=== PATIENT | female | born 1975 | race Hispanic/Latino ===

== ENCOUNTER 2020-09-22 13:40 | Emergency (ER) | payer BC ==
--- NOTE | 2020-09-22 15:00 | RAD REPORT ---
EXAM DESCRIPTION: RAD - Chest Pa And Lat (2 Views) - 09/22/2020 2:37 pm CLINICAL HISTORY: Congestion;Cough COMPARISON: Portable September 2015 TECHNIQUE: Frontal and lateral views of the chest were obtained. FINDINGS: The lungs are underinflated compared to the prior study. Interstitial and alveolar opaciti es are present in both lung bases. Pneumonia is favored over shallow inspiration atelectasis. Heart size is normal and central vasculature is within normal limits. No pleural effusion or pneumothorax seen. No acute bony finding noted. No aortic abnormality. IMPRESSION: Bilateral lung base pneumonia.
--- NOTE | 2020-09-22 15:52 | EDPHYS ---
Physician Documentation [facility] Name: Ying Terry Age: 44 yrs Sex: Female : 1975 Arrival Date: 09/22/2020 Time: 13:44 Bed 26 Private MD: ED Physician Carter Reagan HPI: 09/22 16:49 This 44 yrs old Female presents to ER via Ambulatory with complaints of Cough, kb Body Aches. 16:49 The patient or guardian reports cough, that is constant, described as mild, described kb as moderate. Onset: The symptoms/episode began/occurred last week. Severity of symptoms: At their worst the symptoms were moderate, in the emergency department the symptoms are unchanged. Modifying factors: The symptoms are alleviated by nothing, the symptoms are aggravated by nothing. Associated signs and symptoms: The patient has no apparent associated signs or symptoms. The patient has not experienced similar symptoms in the past. The patient has been recently seen by a physician:. PT reports she tested positive for covid last week. Came today because she cannot get rid of the cough. Historical: - Allergies: 13:50 No Known Drug Allergies; tw2 - Home Meds: 13:50 "throid medicine" [Active]; tw2 - PMHx: 13:50 Hypothyroidism; tw2 - PSHx: 13:50 ; Appendectomy; tw2 - Immunization history:: Adult Immunizations. - Social history:: Smoking status: . ROS: 16:48 Cardiovascular: Negative for chest pain, palpitations, and edema, Abdomen/GI: Negative kb for abdominal pain, nausea, vomiting, diarrhea, and constipation, Back: Negative for injury and pain, MS/Extremity: Negative for injury and deformity, Skin: Negative for injury, rash, and discoloration, Neuro: Negative for headache, weakness, numbness, tingling, and seizure. 16:48 Constitutional: Positive for malaise. 16:48 Respiratory: Positive for cough, Negative for dyspnea on exertion, hemoptysis, orthopnea, pleurisy, shortness of breath, sputum production, wheezing. Exam: 16:48 Constitutional: This is a well developed, well nourished patient who is awake, alert, kb and in no acute distress. Head/Face: Normocephalic, atraumatic. Chest/axilla: Normal chest wall appearance and motion. Nontender with no deformity. No lesions are appreciated. Cardiovascular: Regular rate and rhythm with a normal S1 and S2. No gallops, murmurs, or rubs. Normal PMI, no JVD. No pulse deficits. Respiratory: Lungs have equal breath sounds bilaterally, clear to auscultation and percussion. No rales, rhonchi or wheezes noted. No increased work of breathing, no retractions or nasal flaring. Abdomen/GI: Soft, non-tender, with normal bowel sounds. No distension or tympany. No guarding or rebound. No evidence of tenderness throughout. Skin: Warm, dry with normal turgor. Normal color with no rashes, no lesions, and no evidence of cellulitis. MS/ Extremity: Pulses equal, no cyanosis. Neurovascular intact. Full, normal range of motion. Neuro: Awake and alert, GCS 15, oriented to person, place, time, and situation. Cranial nerves II-XII grossly intact. Motor strength 5/5 in all extremities. Sensory grossly intact. Cerebellar exam normal. Normal gait. Vital Signs: 13:46 BP 112 / 88; Pulse 108; Resp 19; Temp 99.9(TE); Pulse Ox 96% on R/A; Weight 63.05 kg; tw2 Height 5 ft. 1 in. (154.94 cm); Pain 0/10; 13:46 Body Mass Index 26.26 (63.05 kg, 154.94 cm) tw2 MDM: 15:34 Patient medically screened. kb 16:49 Data reviewed: vital signs, nurses notes. Data interpreted: Pulse oximetry: on room air kb is 96 %. Interpretation: normal. Counseling: I had a detailed discussion with the patient and/or guardian regarding: the historical points, exam findings, and any diagnostic results supporting the discharge/admit diagnosis, radiology results, the need for outpatient follow up, a family practitioner, to return to the emergency department if symptoms worsen or persist or if there are any questions or concerns that arise at home. 09/22 14:18 Order name: Chest Pa And Lat (2 Views) XRAY; Complete Time: 15:11 kb Administered Medications: 16:05 Drug: predniSONE 40 mg Route: PO; tw2 16:06 Drug: Tussionex Pennkinetic ER 5 ml Route: PO; tw2 16:06 Drug: Zithromax 500 mg Route: PO; tw2 Disposition: 19:01 Co-signature as Attending Physician, Carter Reagan MD. rn Disposition: 09/22/20 15:51 Discharged to Home. Impression: Pneumonia, unspecified organism, Coronavirus infection, unspecified. - Condition is Stable. - Discharge Instructions: Community-Acquired Pneumonia, Adult, [id number], COVID-19. - Prescriptions for Prednisone 20 mg Oral Tablet - take 1 tablet by ORAL route once daily for 5 days; 5 tablet. Tessalon Perles 100 mg Oral Capsule - take 1 capsule by ORAL route every 8 hours As needed; 15 capsule. Albuterol Sulfate 90 mcg/actuation - inhale 1-2 puff by INHALATION route every 4-6 hours; 1 Inhaler. Zithromax 500 mg Oral Tablet - take 1 tablet by ORAL route once daily for 5 days; 5 tablet. - Medication Reconciliation Form, Thank You Letter, Antibiotic Education, Prescription Opioid Use form. - Follow up: Emergency Department; When: As needed; Reason: Worsening of condition. Follow up: Private Physician; When: 2 - 3 days; Reason: Recheck today's complaints, Continuance of care, Re-evaluation by your physician. Signatures: Dispatcher [employer] EDMS Migdalia Liang, PHARMACEUTICAL OPERATOR-C PHARMACEUTICAL OPERATOR-Carter Huang MD MD rn Baxter, Heather, RN RN hb Wise, Tara, RN RN tw2 Corrections: (The following items were deleted from the chart) 16:13 15:51 09/22/2020 15:51 Discharged to Home. Impression: Pneumonia, unspecified organism; hb Coronavirus infection, unspecified. Condition is Stable. Forms are Medication Reconciliation Form, Thank You Letter, Antibiotic Education, Prescription Opioid Use. Follow up: Emergency Department; When: As needed; Reason: Worsening of condition. Follow up: Private Physician; When: 2 - 3 days; Reason: Recheck today's complaints, Continuance of care, Re-evaluation by your physician. kb
--- NOTE | 2020-09-22 15:52 | ER ---
Nurse's Notes [facility] Name: Ying Terry Age: 44 yrs Sex: Female : 1975 Arrival Date: 09/22/2020 Time: 13:44 Bed 26 Private MD: Diagnosis: Pneumonia, unspecified organism;Coronavirus infection, unspecified Presentation: 09/22 13:46 Chief complaint: Patient states: i am covid positive, i was tested last Tuesday, i cant tw2 get rid of the cough and the doctor said i need to have a chest xray done to r/out pneumonia , cough congestion, body aches, fatigued. Coronavirus screen: chills, cough unrelated to allergies, fatigue, fever, headache, muscle pain, runny nose, loss of taste or smell, Client presents with at least one sign or symptom that may indicate coronavirus-19. Standard/surgical mask placed on the client. Provider contacted for isolation considerations. Client reports previous positive COVID test result. Date of collection: September 15, 2020. Ebola Screen: Patient denies travel to an Ebola-affected area in the 21 days before illness onset. Initial Sepsis Screen: Does the patient meet any 2 criteria? HR > 90 bpm. No. Patient's initial sepsis screen is negative. Does the patient have a suspected source of infection? Yes: Productive cough/pneumonia. Risk Assessment: Do you want to hurt yourself or someone else? Patient reports no desire to harm self or others. Onset of symptoms was September 22, 2020. 13:46 Method Of Arrival: Ambulatory tw2 13:46 Acuity: WAQAR 3 tw2 Triage Assessment: 13:50 General: Appears in no apparent distress. uncomfortable, Behavior is calm, cooperative, tw2 appropriate for age. Pain: Complains of pain in nose and mouth. EENT: Reports nasal congestion nasal discharge. Respiratory: Reports cough that is. Historical: - Allergies: 13:50 No Known Drug Allergies; tw2 - Home Meds: 13:50 "throid medicine" [Active]; tw2 - PMHx: 13:50 Hypothyroidism; tw2 - PSHx: 13:50 ; Appendectomy; tw2 - Immunization history:: Adult Immunizations. - Social history:: Smoking status: . Screenin:46 Abuse screen: Denies threats or abuse. Denies injuries from another. Nutritional hb screening: No deficits noted. Tuberculosis screening: No symptoms or risk factors identified. Fall Risk None identified. Assessment: 15:44 General: Appears in no apparent distress. Behavior is calm, cooperative. Pain: Pain hb currently is 3 out of 10 on a pain scale. Neuro: Level of Consciousness is awake, alert, obeys commands, Oriented to person, place, time, situation. Cardiovascular: Capillary refill < 3 seconds Patient's skin is warm and dry. Respiratory: Reports cough that is non-productive, Airway is patent Respiratory effort is even, unlabored, Respiratory pattern is regular, symmetrical. GI: No signs and/or symptoms were reported involving the gastrointestinal system. : No signs and/or symptoms were reported regarding the genitourinary system. EENT: No signs and/or symptoms were reported regarding the EENT system. Derm: Skin is pink, warm \\T\\ dry. Musculoskeletal: Reports body aches. Vital Signs: 13:46 BP 112 / 88; Pulse 108; Resp 19; Temp 99.9(TE); Pulse Ox 96% on R/A; Weight 63.05 kg; tw2 Height 5 ft. 1 in. (154.94 cm); Pain 0/10; 13:46 Body Mass Index 26.26 (63.05 kg, 154.94 cm) tw2 ED Course: 13:44 Patient arrived in ED. ds1 13:49 Triage completed. tw2 13:50 Arm band placed on. tw2 14:18 Migdalia Liang FNP-C is [facility]. kb 14:18 Carter Reagan MD is Attending Physician. kb 14:34 Chest Pa And Lat (2 Views) XRAY In Process Unspecified. EDMS 15:44 Tigist Manzanares, ADEN is Primary Nurse. hb 15:46 Patient has correct armband on for positive identification. Bed in low position. Call hb light in reach. Side rails up X 1. Administered Medications: 16:05 Drug: predniSONE 40 mg Route: PO; tw2 16:06 Drug: Tussionex Pennkinetic ER 5 ml Route: PO; tw2 16:06 Drug: Zithromax 500 mg Route: PO; tw2 Outcome: 15:51 Discharge ordered by . kb 16:13 Patient left the ED. hb Signatures: Dispatcher [employer] EDMS Garth, Migdalia, URBAN PLANNER-C URBAN PLANNER-Ckb Renetta Carlos ds1 Tigist Manzanares, RN RN hb Ramila Jones RN RN tw2
[2020-09-22 16:18] VITALS: BP 112/88; TEMP 99.9; O2SAT 96
[2020-09-22] MEDS ORDERED: AZITHROMYCIN 250 MG TAB ONE (16:18)
[2020-09-22] MEDS ORDERED: predniSONE 20 MG TAB ONE (16:19)
[2020-09-22] MEDS ORDERED: HYDROCODONE/CHLORPHEN 5 ML/OSYR ONE (16:19)
== END 2020-09-22 16:13 | disposition home or self-care (01) ==
LOC: ER 13:40
DX: U07.1 COVID-19 (principal); J12.82 Pneumonia due to coronavirus disease 2019; E03.9 Hypothyroidism, unspecified
CPT/HCPCS: 71046; 99283; J7512

== ENCOUNTER 2020-09-25 16:51 | Emergency (ER) | payer BC ==
[2020-09-25] MEDS ORDERED: MAGNESIUM SULFATE 1 gm IVPB 1 GM/100 ML BAG IV ONE (21:34)
[2020-09-25] MEDS ORDERED: LEVALBUTEROL 1.25 MG/3 ML NEB ONE (21:34)
[2020-09-25 21:37] LABS: Absolute Lymphocytes (CBC) 1.3 K/uL (0.7-4.9); Basophils % 0.4 % (0-1.3); Hematocrit 35.1 % (36.0-45.0); Lymphocytes % 13.6 % (15.3-44.8); RBC Red Blood Cell Count 4.17 M/uL (3.86-4.86)
[2020-09-25 21:59] LABS: ALT/SGPT 201 U/L (12-78); AST/SGOT 86 U/L (15-37); Albumin 2.8 g/dL (3.4-5.0); Alkaline Phosphatase 267 U/L (45-117); BUN Blood Urea Nitrogen 11 mg/dL (7-18); Bicarbonate 25 mmol/L (21-32); Bilirubin Total 0.3 mg/dL (0.2-1.0); Glucose Level 135 mg/dL (74-106); Protein, Total 7.4 g/dL (6.4-8.2); Sodium Level 139 mmol/L (136-145)
[2020-09-25] MEDS ORDERED: ONDANSETRON 4 MG/2 ML VIAL ONE (22:40)
[2020-09-25] MEDS ORDERED: dexAMETHasone 10 MG/ML VIAL ONE (22:40)
[2020-09-25] MEDS ORDERED: MORPHINE 4 MG/ML SYR ONE (22:40)
[2020-09-25] MEDS ORDERED: HYDROCODONE/CHLORPHEN 5 ML/OSYR ONE (22:40)
--- NOTE | 2020-09-25 22:55 | ER ---
Nurse's Notes [facility] Name: Ying Terry Age: 44 yrs Sex: Female : 1975 Arrival Date: 09/25/2020 Time: 16:53 Bed 7 Private MD: Diagnosis: Coronavirus infection, unspecified Presentation: 09/25 17:20 Chief complaint: Patient states: Covid+ 09/15/2020. S/S started 09/12/2020. Here today ca1 for persistent cough, chest congestion and pain with coughing, unable to sleep, sore throat. Was tested here and was told I have bacterial pneumonia, still have 1 dose last for of the abx for tomorrow. Coronavirus screen: Client denies travel out of the [place] in the last 14 days. Client reports previous positive COVID test result. Date of collection: September 15, 2020 Staff notified of need for isolation. Ebola Screen: Patient negative for fever greater than or equal to 101.5 degrees Fahrenheit, and additional compatible Ebola Virus Disease symptoms Patient denies exposure to infectious person. Patient denies travel to an Ebola-affected area in the 21 days before illness onset. No symptoms or risks identified at this time. Initial Sepsis Screen: Does the patient meet any 2 criteria? No. Patient's initial sepsis screen is negative. Does the patient have a suspected source of infection? No. Patient's initial sepsis screen is negative. Risk Assessment: Do you want to hurt yourself or someone else? Patient reports no desire to harm self or others. Onset of symptoms was September 25, 2020. 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 - Social history:: Smoking status: Patient denies any tobacco usage or history of. Screenin:02 Abuse screen: Denies threats or abuse. Nutritional screening: No deficits noted. ea Tuberculosis screening: No symptoms or risk factors identified. Fall Risk None identified. Assessment: 21:30 General: Appears in no apparent distress. uncomfortable, Behavior is calm, cooperative, rr5 appropriate for age. Pain: Complains of pain in chest Pain does not radiate. Pain currently is 7 out of 10 on a pain scale. Quality of pain is described as aching, Pain began gradually. Neuro: Level of Consciousness is awake, alert, obeys commands, Oriented to person, place, time, situation. Cardiovascular: Reports chest pain, Capillary refill < 3 seconds Patient's skin is warm and dry. Respiratory: Reports shortness of breath cough that is pain with cough Airway is patent Respiratory effort is even, unlabored, Respiratory pattern is regular, symmetrical. GI: No signs and/or symptoms were reported involving the gastrointestinal system. : No signs and/or symptoms were reported regarding the genitourinary system. EENT: No signs and/or symptoms were reported regarding the EENT system. Derm: Skin is intact, is healthy with good turgor, Skin temperature is warm. Musculoskeletal: Circulation, motion, and sensation intact. Capillary refill < 3 seconds. 22:15 Reassessment: Patient appears in no apparent distress at this time. Patient is alert, rr5 oriented x 3, equal unlabored respirations, skin warm/dry/pink. able to walk down the hallway without shortness of breath. O2 saturation maintain on 95% and above. 22:32 Reassessment: Patient appears in no apparent distress at this time. Patient is alert, rr5 oriented x 3, equal unlabored respirations, skin warm/dry/pink. complaining of persistent cough, ED provider aware with order made and carried out. 23:21 Reassessment: Patient appears in no apparent distress at this time. Patient is alert, rr5 oriented x 3, equal unlabored respirations, skin warm/dry/pink. discharge instruction given and explained without complaints made Patient states feeling better. Patient states symptoms have improved. Vital Signs: 17:20 BP 105 / 65; Pulse 98; Resp 20 S; Temp 98.3(TE); Pulse Ox 97% on R/A; Weight 60.78 kg ca1 (R); Height 5 ft. 1 in. (154.94 cm) (R); Pain 7/10; 21:09 BP 125 / 81; Pulse 110; Resp 22; Pulse Ox 95% ; rr5 22:30 BP 108 / 76; Pulse 115; Resp 24; Pulse Ox 96% ; rr5 23:22 BP 123 / 80; Pulse 104; Resp 19; Pulse Ox 96% ; rr5 17:20 Body Mass Index 25.32 (60.78 kg, 154.94 cm) ca1 ED Course: 16:53 Patient arrived in ED. as 17:24 Triage completed. ca1 17:25 Arm band placed on right wrist. ca1 20:00 Dilip Sofia PA is PHCP. [facility] 20:00 Carter Reagan MD is Attending Physician. jmm 20:25 Inserted saline lock: 20 gauge in left antecubital area, using aseptic technique. rr5 ,using aseptic technique. inserted by fatou SAMANIEGO Blood collected. 20:25 First set of blood cultures drawn by ED staff. rr5 21:02 Fatou Bajwa, ADEN is Primary Nurse. ea 21:02 Patient has correct armband on for positive identification. Bed in low position. Call ea light in reach. Pulse ox on. NIBP on. 23:22 No provider procedures requiring assistance completed. IV discontinued, intact, rr5 bleeding controlled, No redness/swelling at site. Pressure dressing applied. Patient maintains SpO2 saturation greater than 95% on room air. Administered Medications: 21:31 Drug: Magnesium Sulfate 1 grams Route: IVPB; Infused Over: 1 hrs; Site: left rr5 antecubital; 23:24 Follow up: Response: No adverse reaction; IV Status: Completed infusion; IV Intake: rr5 100ml 21:31 Drug: Xopenex (3) 1.25 mg Route: Inhalation; rr5 22:30 Follow up: Response: No adverse reaction rr5 22:30 Drug: Tussionex Pennkinetic ER 5 ml Route: PO; rr5 23:23 Follow up: Response: No adverse reaction; Marked relief of symptoms rr5 22:31 Drug: Decadron - Dexamethasone 10 mg Route: IVP; Site: right wrist; rr5 23:23 Follow up: Response: No adverse reaction rr5 22:31 CANCELLED (Patient Refused): morphine 4 mg IVP once; RASS on ADMIN: Combtv4, Very rr5 Agttd3, Agttd2, Rstlss1, AlertClm0, Drwsy-1, Lt Sdtn-2, Mod Sdtn-3, Dp Sdtn-4, UnArsble-5 22:31 CANCELLED (Patient Refused): Zofran (Ondansetron) 4 mg IVP once; over 2 minutes rr5 Intake: 23:24 IV: 100ml; Total: 100ml. rr5 Outcome: 22:54 Discharge ordered by MD. costa 23:23 Discharged to home ambulatory. rr5 23:23 Condition: stable 23:23 Discharge instructions given to patient, Instructed on discharge instructions, follow up and referral plans. medication usage, Demonstrated understanding of instructions, follow-up care, medications, Prescriptions given X 2. 23:24 Patient left the ED. rr5 Signatures: Dilip Sofia PA PA jmm Martinez, Amelia as Antunez, Elena RN RN Kevin Reeves RN RN rr5 Tere Calvin RN RN ca1
--- NOTE | 2020-09-25 22:55 | EDPHYS ---
Physician Documentation [facility] Name: Ying Terry Age: 44 yrs Sex: Female : 1975 Arrival Date: 09/25/2020 Time: 16:53 Bed 7 Private MD: ED Physician Carter Reagan HPI: 09/25 21:10 This 44 yrs old Female presents to ER via Ambulatory with complaints of Cough jmm - covid+, Chest Pain. 21:10 The patient or guardian reports cough. Onset: The symptoms/episode began/occurred jmm gradually, 13 day(s) ago. Modifying factors: The symptoms are alleviated by nothing, the symptoms are aggravated by cough. This is a 44 year old female with a history of hypothyroidism that presents to the ED with complaints of cough, shortness of breath. Symptoms began approx 13 days ago. Patient diagnosed with pneumonia 3 days ago. Currently taking steroids and abx. . 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 - Social history:: Smoking status: Patient denies any tobacco usage or history of. ROS: 21:10 Constitutional: Positive for fever. jmm 21:10 Cardiovascular: Positive for chest pain, with cough. 21:10 Respiratory: Positive for cough, shortness of breath. 21:10 All other systems are negative. Exam: 21:10 Constitutional: This is a well developed, well nourished patient who is awake, alert, jmm and in no acute distress. Head/Face: atraumatic. Eyes: EOMI, no conjunctival erythema appreciated ENT: Moist Mucus Membranes Neck: Trachea midline, Supple Chest/axilla: Normal chest wall appearance and motion. Cardiovascular: Regular rate and rhythm. No edema appreciated Respiratory: Normal respirations, no respiratory distress appreciated Abdomen/GI: Non distended, soft Back: Normal ROM Skin: General appearance color normal MS/ Extremity: Moves all extremities, no obvious deformities appreciated, no edema noted to the lower extremities Neuro: Awake and alert, normal gait Psych: Behavior is normal, Mood is normal, Patient is cooperative and pleasant Vital Signs: 17:20 BP 105 / 65; Pulse 98; Resp 20 S; Temp 98.3(TE); Pulse Ox 97% on R/A; Weight 60.78 kg ca1 (R); Height 5 ft. 1 in. (154.94 cm) (R); Pain 7/10; 21:09 BP 125 / 81; Pulse 110; Resp 22; Pulse Ox 95% ; rr5 22:30 BP 108 / 76; Pulse 115; Resp 24; Pulse Ox 96% ; rr5 23:22 BP 123 / 80; Pulse 104; Resp 19; Pulse Ox 96% ; rr5 17:20 Body Mass Index 25.32 (60.78 kg, 154.94 cm) ca1 MDM: 21:10 Patient medically screened. [facility] 22:52 Data reviewed: vital signs, nurses notes. Counseling: I had a detailed discussion with julissa the patient and/or guardian regarding: the historical points, exam findings, and any diagnostic results supporting the discharge/admit diagnosis, lab results, the need for outpatient follow up, to return to the emergency department if symptoms worsen or persist or if there are any questions or concerns that arise at home. ED course: Pulse ox is wnl. I do not suspect sepsis. Patient does feel better in the ED. Will add ivermectin and cough suppressant. Patient is otherwise given strict return precautions. Patient understood and agrees with the plan of care. . 09/25 21:13 Order name: CBC with Diff; Complete Time: 21:46 [facility] 09/25 21:13 Order name: CMP; Complete Time: 22:04 [facility] 09/25 21:13 Order name: Blood Culture Adult (2) [facility] 09/25 21:14 Order name: CRP; Complete Time: 22:04 [facility] 09/25 21:16 Order name: D-Dimer; Complete Time: 21:46 [facility] 09/25 17:26 Order name: EKG; Complete Time: 17:27 [facility] 09/25 17:26 Order name: EKG - Nurse/Tech; Complete Time: 17:31 [facility] 09/25 21:13 Order name: Saline Lock; Complete Time: 21:31 [facility] Administered Medications: 21:31 Drug: Magnesium Sulfate 1 grams Route: IVPB; Infused Over: 1 hrs; Site: left rr5 antecubital; 23:24 Follow up: Response: No adverse reaction; IV Status: Completed infusion; IV Intake: rr5 100ml 21:31 Drug: Xopenex (3) 1.25 mg Route: Inhalation; rr5 22:30 Follow up: Response: No adverse reaction rr5 22:30 Drug: Tussionex Pennkinetic ER 5 ml Route: PO; rr5 23:23 Follow up: Response: No adverse reaction; Marked relief of symptoms rr5 22:31 Drug: Decadron - Dexamethasone 10 mg Route: IVP; Site: right wrist; rr5 23:23 Follow up: Response: No adverse reaction rr5 22:31 CANCELLED (Patient Refused): morphine 4 mg IVP once; RASS on ADMIN: Combtv4, Very rr5 Agttd3, Agttd2, Rstlss1, AlertClm0, Drwsy-1, Lt Sdtn-2, Mod Sdtn-3, Dp Sdtn-4, UnArsble-5 22:31 CANCELLED (Patient Refused): Zofran (Ondansetron) 4 mg IVP once; over 2 minutes rr5 Disposition: 09/26 01:51 Co-signature as Attending Physician, Carter Reagan MD. rn Disposition: 09/25/20 22:54 Discharged to Home. Impression: Coronavirus infection, unspecified. - Condition is Stable. - Discharge Instructions: COVID-19. - Prescriptions for ivermectin 3 mg Oral tablet - take 6 tablet by ORAL route as directed Dose on day one and dose on day 3; 12 tablet. promethazine- DM - take 5 milliliter by ORAL route every 4-6 hours; 120 milliliter. - Medication Reconciliation Form, Thank You Letter, Antibiotic Education, Prescription Opioid Use form. - Follow up: Private Physician; When: 2 - 3 days; Reason: Recheck today's complaints, Continuance of care, Re-evaluation by your physician. Signatures: Dispatcher [employer] EDMS Dilip Sofia PA PA jmm Nieto, Roman, MD MD rn Roque, Raymond, RN RN rr5 Tere Calvin RN RN ca1 Corrections: (The following items were deleted from the chart) 09/25 22:31 22:22 morphine 4 mg IVP once; RASS on ADMIN: Combtv4, Very Agttd3, Agttd2, Rstlss1, rr5 AlertClm0, Drwsy-1, Lt Sdtn-2, Mod Sdtn-3, Dp Sdtn-4, UnArsble-5 ordered. m 22:31 22:22 Zofran (Ondansetron) 4 mg IVP once; over 2 minutes ordered. [facility] rr5 22:34 22:10 Chest Single View+RAD.RAD.BRZ ordered. EDMS EDMS 22:50 21:14 Influenza Screen (A \T\ B)+BA.LAB.BRZ ordered. EDMS EDMS 23:24 22:54 09/25/2020 22:54 Discharged to Home. Impression: Coronavirus infection, rr5 unspecified. Condition is Stable. Forms are Medication Reconciliation Form, Thank You Letter, Antibiotic Education, Prescription Opioid Use. Follow up: Private Physician; When: 2 - 3 days; Reason: Recheck today's complaints, Continuance of care, Re-evaluation by your physician. julissa
[2020-09-26 00:22] LABS: SARS-COV-2 RT PCR POSITIVE (NEGATIVE)
[2020-09-26 00:59] VITALS: TEMP 98.3
[2020-09-26 01:01] VITALS: O2SAT 96
[2020-09-26 01:03] VITALS: BP 123/80
--- NOTE | 2020-09-26 11:05 | EKG ---
Test Date: 2020-09-25 Test Time: 17:29:53 Nursing Surgical Services Director: MATA MEASUREMENT RESULTS: Intervals: Rate: 81 VA: 128 QRSD: 82 QT: 384 QTc: 446 [place]: P: 54 VA: 128 QRS: 42 T: 27 INTERPRETIVE STATEMENTS: Normal sinus rhythm Normal ECG No previous ECG available for comparison Electronically Signed On 09-26-20 11:05:03 [employer] DEVELOPER by Edenilson Em
== END 2020-09-25 23:24 | disposition home or self-care (01) ==
LOC: ER 16:51
DX: U07.1 COVID-19 (principal); E03.9 Hypothyroidism, unspecified
CPT/HCPCS: 96365; 93005; 87040 ×2; 85025; 36415; 85379; 80053; 0240U; 86140; 96375; 99285; 96366; J3475; J1100; J2405

== ENCOUNTER 2020-09-28 11:18 | Emergency (ER) | payer BC ==
[2020-09-28] MEDS ORDERED: ALBUTEROL INHALER 60 PUFF/8 GM IH ONE (12:09)
[2020-09-28] MEDS ORDERED: LIDOCAINE VISCOUS 2% SOLN 15 ML UDC ONE (12:09)
[2020-09-28] MEDS ORDERED: KETOROLAC 30 MG/ML INJ ONE (12:09)
[2020-09-28] MEDS ORDERED: METHYLPREDNISOLONE 125 MG INJ ONE (12:09)
--- NOTE | 2020-09-28 12:42 | EDPHYS ---
Physician Documentation [facility] Name: Ying Terry Age: 44 yrs Sex: Female : 1975 Arrival Date: 09/28/2020 Time: 11:21 Bed 13 Private MD: ED Physician Tanvir Soriano HPI: 09/28 12:15 This 44 yrs old Female presents to ER via Ambulatory with complaints of Cough, ma2 Sore Throat. 12:15 The patient or guardian reports cough. Onset: The symptoms/episode began/occurred ma2 gradually, 2 week(s) ago. Severity of symptoms: At their worst the symptoms were mild, in the emergency department the symptoms are unchanged. Associated signs and symptoms: Pertinent negatives: ear ache, nausea, sore throat. The patient has experienced similar episodes in the past. covid ++ . Historical: - Allergies: 11:37 No Known Allergies; ss - PMHx: 11:37 Hypothyroidism; ss - PSHx: 11:37 ; Appendectomy; ss - Immunization history:: Adult Immunizations up to date. - Social history:: Smoking status: Patient denies any tobacco usage or history of. - Family history:: not pertinent. ROS: 12:15 Constitutional: Negative for fever, chills, and weight loss. ma2 12:15 All other systems are negative. Exam: 12:15 Constitutional: This is a well developed, well nourished patient who is awake, alert, ma2 and in no acute distress. Head/Face: Normocephalic, atraumatic. Eyes: Pupils equal round and reactive to light, extra-ocular motions intact. Lids and lashes normal. Conjunctiva and sclera are non-icteric and not injected. Cornea within normal limits. Periorbital areas with no swelling, redness, or edema. ENT: Nares patent. No nasal discharge, no septal abnormalities noted. Tympanic membranes are normal and external auditory canals are clear. Oropharynx with no redness, swelling, or masses, exudates, or evidence of obstruction, uvula midline. Mucous membranes moist. Neck: Trachea midline, no thyromegaly or masses palpated, and no cervical lymphadenopathy. Supple, full range of motion without nuchal rigidity, or vertebral point tenderness. No Meningismus. Chest/axilla: Normal chest wall appearance and motion. Nontender with no deformity. No lesions are appreciated. Cardiovascular: Regular rate and rhythm with a normal S1 and S2. No gallops, murmurs, or rubs. Normal PMI, no JVD. No pulse deficits. Respiratory: Lungs have equal breath sounds bilaterally, clear to auscultation and percussion. No rales, rhonchi or wheezes noted. No increased work of breathing, no retractions or nasal flaring. Abdomen/GI: Soft, non-tender, with normal bowel sounds. No distension or tympany. No guarding or rebound. No evidence of tenderness throughout. Back: No spinal tenderness. No costovertebral tenderness. Full range of motion. Skin: Warm, dry with normal turgor. Normal color with no rashes, no lesions, and no evidence of cellulitis. MS/ Extremity: Pulses equal, no cyanosis. Neurovascular intact. Full, normal range of motion. Neuro: Awake and alert, GCS 15, oriented to person, place, time, and situation. Cranial nerves II-XII grossly intact. Motor strength 5/5 in all extremities. Sensory grossly intact. Cerebellar exam normal. Normal gait. Vital Signs: 11:34 BP 96 / 68; Pulse 115; Resp 20; Temp 98.2(TE); Pulse Ox 96% on R/A; Weight 60.78 kg; ss Height 5 ft. 1 in. (154.94 cm); Pain 5/10; 13:00 BP 94 / 68; Pulse 89; Resp 18; Pulse Ox 99% on R/A; vg1 11:34 Body Mass Index 25.32 (60.78 kg, 154.94 cm) MDM: 11:39 Patient medically screened. ma2 12:15 Differential Diagnosis: Bronchitis Influenza Upper Respiratory Infection Sinusitis ma2 Pharyngitis. Data reviewed: vital signs, nurses notes. Counseling: I had a detailed discussion with the patient and/or guardian regarding: the historical points, exam findings, and any diagnostic results supporting the discharge/admit diagnosis, the presence of at least one elevated blood pressure reading (>120/80) during this emergency department visit, the need for outpatient follow up. Response to treatment: There is no appreciated change of the patient's symptoms at this time. Administered Medications: 12:05 Drug: TORadol 60 mg Route: IM; Site: right gluteus; ll1 13:12 Follow up: Response: Pain is decreased vg1 12:05 Drug: Lidocaine Gel 2 % 1 ea {Note: swish and spit.} Volume: 15 ml; Route: Mucous ll1 Membrane; 13:12 Follow up: Response: No adverse reaction vg1 12:05 Drug: MethylPREDNISolone Sodium Succinate 125 mg Route: IM; Site: left gluteus; ll1 13:12 Follow up: Response: No adverse reaction vg1 12:05 Drug: Albuterol HFA Inhaler 2 puffs Route: Inhalation; ll1 13:11 Follow up: Response: No adverse reaction vg1 Disposition: 09/28/20 12:41 Discharged to Home. Impression: Coronavirus infection, unspecified. - Condition is Stable. - Discharge Instructions: COVID-19. - Prescriptions for Lidocaine Viscous - take 20 milligram by MUCOUS MEMBRANE route 1-2 times daily for 4 days; 200 milligram. Diclofenac Sodium 75 mg Oral Tablet Sustained Release - take 1 tablet by ORAL route 2 times per day; 30 tablet. Albuterol Sulfate 90 mcg/actuation - inhale 1-2 puff by INHALATION route every 4-6 hours; 1 Inhaler. Medrol (Ld) 4 mg Oral Tablets, Dose Pack - take 1 tablet by ORAL route as directed - follow package instructions; 1 packet. - Medication Reconciliation Form, Thank You Letter, Antibiotic Education, Prescription Opioid Use, Work release form form. - Follow up: Private Physician; When: Tomorrow; Reason: If symptoms return, Continuance of care. Signatures: Tita Roberts RN RN Tanvir Soriano MD MD ma2 Mony Urbina RN RN vg1 Sonia Nazario RN RN ll1 Corrections: (The following items were deleted from the chart) 13:11 12:41 09/28/2020 12:41 Discharged to Home. Impression: Coronavirus infection, vg1 unspecified. Condition is Stable. Prescriptions for Lidocaine Viscous - take 20 milligram by MUCOUS MEMBRANE route 1-2 times daily for 4 days; 200 milligram, Diclofenac Sodium 75 mg Oral Tablet Sustained Release - take 1 tablet by ORAL route 2 times per day; 30 tablet, Albuterol Sulfate 90 mcg/actuation - inhale 1-2 puff by INHALATION route every 4-6 hours; 1 Inhaler. and Forms are Medication Reconciliation Form, Thank You Letter, Antibiotic Education, Prescription Opioid Use. Follow up: Private Physician; When: Tomorrow; Reason: If symptoms return, Continuance of care. ma2
--- NOTE | 2020-09-28 12:42 | ER ---
Nurse's Notes [facility] Name: Ying Terry Age: 44 yrs Sex: Female : 1975 Arrival Date: 09/28/2020 Time: 11:21 Bed 13 Private MD: Diagnosis: Coronavirus infection, unspecified Presentation: 09/28 11:35 Chief complaint: Patient states: Pt c/o sore throat that began last night and white ss patches to back of throat. COVID + 21 days ago. Coronavirus screen: Client denies travel out of the [place] in the last 14 days. Ebola Screen: Patient denies exposure to infectious person. Patient denies travel to an Ebola-affected area in the 21 days before illness onset. Initial Sepsis Screen: Does the patient meet any 2 criteria? No. Patient's initial sepsis screen is negative. Does the patient have a suspected source of infection? No. Patient's initial sepsis screen is negative. Risk Assessment: Do you want to hurt yourself or someone else? Patient reports no desire to harm self or others. Onset of symptoms was September 27, 2020. 11:35 Method Of Arrival: Ambulatory ss 11:35 Acuity: WAQAR 3 ss Historical: - Allergies: 11:37 No Known Allergies; ss - PMHx: 11:37 Hypothyroidism; ss - PSHx: 11:37 ; Appendectomy; ss - Immunization history:: Adult Immunizations up to date. - Social history:: Smoking status: Patient denies any tobacco usage or history of. - Family history:: not pertinent. Screenin:07 Abuse screen: Denies threats or abuse. Nutritional screening: No deficits noted. ll1 Tuberculosis screening: No symptoms or risk factors identified. Fall Risk None identified. Total Amezcua Fall Scale indicates No Risk (0-24 pts). Assessment: 12:06 General: Appears ill, Behavior is calm, cooperative, appropriate for age. Pain: ll1 Complains of pain in throat Quality of pain is described as aching, Aggravated by eating, drinking. Neuro: No deficits noted. Cardiovascular: No deficits noted. Respiratory: Reports cough that is Airway is patent Trachea midline Respiratory effort is even, unlabored, Respiratory pattern is regular, symmetrical, Breath sounds are clear bilaterally. GI: No deficits noted. EENT: Throat is reddened Reports pain when swallowing. 13:00 Reassessment: Patient appears in no apparent distress at this time. No changes from vg1 previously documented assessment. Patient and/or family updated on plan of care and expected duration. Pain level reassessed. Patient is alert, oriented x 3, equal unlabored respirations, skin warm/dry/pink. Patient denies pain at this time. Vital Signs: 11:34 BP 96 / 68; Pulse 115; Resp 20; Temp 98.2(TE); Pulse Ox 96% on R/A; Weight 60.78 kg; ss Height 5 ft. 1 in. (154.94 cm); Pain 5/10; 13:00 BP 94 / 68; Pulse 89; Resp 18; Pulse Ox 99% on R/A; vg1 11:34 Body Mass Index 25.32 (60.78 kg, 154.94 cm) ED Course: 11:21 Patient arrived in ED. mr 11:37 Triage completed. ss 11:37 Arm band placed on right wrist. ss 11:39 Tanvir Soriano MD is Attending Physician. ma2 11:50 Sonia Nazario, RN is Primary Nurse. ll1 11:59 Primary Nurse role handed off by Sonia Nazario, RN vg1 11:59 Mony Urbina, RN is Primary Nurse. vg1 12:07 Patient has correct armband on for positive identification. Bed in low position. Call ll1 light in reach. Side rails up X 1. Pulse ox on. NIBP on. 13:10 No provider procedures requiring assistance completed. Patient did not have IV access vg1 during this emergency room visit. Administered Medications: 12:05 Drug: TORadol 60 mg Route: IM; Site: right gluteus; ll1 13:12 Follow up: Response: Pain is decreased vg1 12:05 Drug: Lidocaine Gel 2 % 1 ea {Note: swish and spit.} Volume: 15 ml; Route: Mucous ll1 Membrane; 13:12 Follow up: Response: No adverse reaction vg1 12:05 Drug: MethylPREDNISolone Sodium Succinate 125 mg Route: IM; Site: left gluteus; ll1 13:12 Follow up: Response: No adverse reaction vg1 12:05 Drug: Albuterol HFA Inhaler 2 puffs Route: Inhalation; ll1 13:11 Follow up: Response: No adverse reaction vg1 Outcome: 12:41 Discharge ordered by . georgiana 13:11 Discharged to home ambulatory. vg1 13:11 Condition: stable 13:11 Discharge instructions given to patient, Instructed on discharge instructions, follow up and referral plans. medication usage, Demonstrated understanding of instructions, follow-up care, medications, Prescriptions given X 4. 13:11 Patient left the ED. vg1 Signatures: Adriana Tao mr Tita Roberts, RN RN ss Tanvir Soriano MD MD ma2 Mony Urbina RN RN vg1 Sonia Nazario RN RN 1
[2020-09-28 13:17] VITALS: TEMP 98.2
[2020-09-28 13:18] VITALS: BP 94/68; O2SAT 99
== END 2020-09-28 13:11 | disposition home or self-care (01) ==
LOC: ER 11:18
DX: U07.1 COVID-19 (principal); Z86.16 Personal history of COVID-19
CPT/HCPCS: 96372; 99284; J2930

== ENCOUNTER 2020-10-24 07:34 | Emergency (ER) | payer BC ==
[2020-10-24] MEDS ORDERED: METHYLPREDNISOLONE 125 MG INJ ONE (08:25)
[2020-10-24] MEDS ORDERED: ONDANSETRON 4 MG/2 ML VIAL ONE (08:25)
[2020-10-24] MEDS ORDERED: MORPHINE 4 MG/ML SYR ONE (08:25)
[2020-10-24] MEDS ORDERED: KETOROLAC 30 MG/ML INJ ONE (08:26)
--- NOTE | 2020-10-24 08:48 | RAD REPORT ---
EXAM DESCRIPTION: CT - Spine Lumbar Wo Con - 10/24/2020 8:32 am CLINICAL HISTORY: PAINlower back x5 days, history of herniated disc COMPARISON: None. TECHNIQUE: Thin section axial imaging of the lumbar spine was performed. Sagittal and coronal recon struction images were generated and reviewed. All CT scans are performed using dose optimization technique as appropriate and may include automated exposure control or mA/KV adjustment according to patient size. FINDINGS: Vertebral bodies from mid T11 through mid S2 are normal in height and AP Alignment. No lyt ic, sclerotic or expansile bone process. There is a very minimal left convex curvature that may be mu scle spasm, true minimal scoliosis or positioning artifact. No paraspinal mass. Lowest lumbar level is partially sacralized. This is labeled as L5 for the purposes of this examinati on. Minimal disc bulge changes are present at L3-4 without encroachment into the central canal or exit fo ramina. L4-5 midline disc bulge identified probably a small herniation. This flattens the thecal sac but does not cause any measurable central spinal stenosis. Disc bulge extends into the left exit foramen but no significant foraminal stenosis. IMPRESSION: L4-5 bulging disc material is probably a small midline herniation with disc bulge in the left exit foramen. This does not cause central spinal stenosis. No significant foraminal encroachmen t. Very minimal L3-4 disc bulge not regarded as significant. No vertebral body acute or significant finding.
--- NOTE | 2020-10-24 09:37 | ER ---
Nurse's Notes [facility] Name: Ying Terry Age: 44 yrs Sex: Female : 1975 Arrival Date: 10/24/2020 Time: 07:35 Bed 2 Private MD: Diagnosis: Low back pain;Other intervertebral disc degeneration, lumbosacral region Presentation: 10/24 07:41 Chief complaint: Patient states: low back pain that began 5 days ago. No known injury. ss HX of herniated disc. Coronavirus screen: Client denies travel out of the [place] in the last 14 days. Ebola Screen: Patient denies exposure to infectious person. Patient denies travel to an Ebola-affected area in the 21 days before illness onset. Initial Sepsis Screen: Does the patient meet any 2 criteria? No. Patient's initial sepsis screen is negative. Does the patient have a suspected source of infection? No. Patient's initial sepsis screen is negative. Risk Assessment: Do you want to hurt yourself or someone else? Patient reports no desire to harm self or others. Onset of symptoms was October 19, 2020. 07:41 Method Of Arrival: Ambulatory ss 07:41 Acuity: WAQAR 3 ss Historical: - Allergies: 07:43 No Known Allergies; ss - PMHx: 07:43 Hypothyroidism; herniated disc; ss - PSHx: 07:43 ; Appendectomy; ss - Immunization history:: Adult Immunizations up to date. - Social history:: Smoking status: Patient denies any tobacco usage or history of. Screenin:55 Abuse screen: Denies threats or abuse. Denies injuries from another. Nutritional jl7 screening: No deficits noted. Tuberculosis screening: No symptoms or risk factors identified. 08:30 Fall Risk IV access (20 points). Mental Status- Oriented to own ability (0 pts). Total jl7 Amezcua Fall Scale indicates No Risk (0-24 pts). Assessment: 07:55 General: Appears in no apparent distress. uncomfortable, Behavior is cooperative, jl7 appropriate for age, anxious. Pain: Complains of pain in lumbar area Pain does not radiate. Pain currently is 10 out of 10 on a pain scale. Pain began suddenly, Is continuous, Aggravated by increased activity, repositioning, weight bearing. Neuro: Level of Consciousness is awake, alert, obeys commands, Oriented to person, place, time, situation. Cardiovascular: Patient's skin is warm and dry. Respiratory: Airway is patent Respiratory effort is even, unlabored, Respiratory pattern is regular, symmetrical. Derm: Skin is pink, warm \T\ dry. 08:52 Reassessment: Patient appears in no apparent distress at this time. Patient and/or jl7 family updated on plan of care and expected duration. Pain level reassessed. Patient is alert, oriented x 3, equal unlabored respirations, skin warm/dry/pink. Patient states feeling better. Patient states symptoms have improved. Vital Signs: 07:41 BP 108 / 68; Pulse 80; Resp 16; Temp 97.8(TE); Pulse Ox 99% on R/A; Weight 63.05 kg; ss Height 5 ft. 1 in. (154.94 cm); Pain 10/10; 08:52 BP 123 / 70; Pulse 72; Resp 17; Pulse Ox 96% ; jl7 09:46 BP 112 / 66; Pulse 66; Resp 15; Pulse Ox 96% ; jl7 07:41 Body Mass Index 26.26 (63.05 kg, 154.94 cm) ED Course: 07:35 Patient arrived in ED. ds1 07:42 Triage completed. ss 07:43 Arm band placed on right wrist. ss 07:47 Earl David RN is Primary Nurse. jl7 07:55 Patient has correct armband on for positive identification. Bed in low position. Call jl7 light in reach. Side rails up X 1. air route traffic controller on. Pulse ox on. NIBP on. 07:57 Dio Shearer MD is Attending Physician. kdr 08:30 Inserted saline lock: 20 gauge in right antecubital area, using aseptic technique. jl7 08:32 CT Lumbar Spine Wo Con In Process Unspecified. EDMS 09:46 No provider procedures requiring assistance completed. IV discontinued, intact, jl7 bleeding controlled, No redness/swelling at site. Pressure dressing applied. Administered Medications: 08:18 Drug: Zofran (Ondansetron) 4 mg Route: IVP; Site: right antecubital; jl7 08:56 Follow up: Response: No adverse reaction jl7 08:20 Drug: morphine 4 mg Route: IVP; Site: right antecubital; jl7 08:50 Follow up: Response: No adverse reaction; Pain is decreased jl7 08:22 Drug: SOLU-Medrol 125 mg Route: IVP; Site: right antecubital; jl7 08:50 Follow up: Response: No adverse reaction; Pain is decreased jl7 08:23 Drug: TORadol - Ketorolac 15 mg Route: IVP; Site: right antecubital; jl7 08:50 Follow up: Response: No adverse reaction; Pain is decreased jl7 Outcome: 09:36 Discharge ordered by . shantel 09:46 Discharged to home ambulatory. jl7 09:46 Condition: stable 09:46 Discharge instructions given to patient, Instructed on discharge instructions, follow up and referral plans. medication usage, Demonstrated understanding of instructions, follow-up care, medications, Prescriptions given X 4. 09:50 Patient left the ED. jl7 Signatures: Dispatcher [employer] EDMS Dio Shearer MD MD kdr Sanford, Demi ds1 Tita Roberts RN RN ss Leal, Jahala, RN RN jl7 Corrections: (The following items were deleted from the chart) 08:31 08:30 Fall Risk None identified. jl7 jl7
--- NOTE | 2020-10-24 09:37 | EDPHYS ---
Physician Documentation [facility] Name: Ying Terry Age: 44 yrs Sex: Female : 1975 Arrival Date: 10/24/2020 Time: 07:35 Bed 2 Private MD: ED Physician Dio Shearer HPI: 10/24 17:12 This 44 yrs old Female presents to ER via Ambulatory with complaints of Back kdr Pain. 17:12 The patient presents with pain that is acute, with no known mechanism of injury. The kdr symptoms are located in the low back. Onset: The symptoms/episode began/occurred gradually, 5 day(s) ago. The pain does not radiate. Associated signs and symptoms: The patient has no apparent associated signs or symptoms. The problem was sustained from unknown cause. Modifying factors: The patient symptoms are alleviated by nothing, the patient symptoms are aggravated by any movement. Severity of symptoms: At their worst the symptoms were severe, incapacitating, just prior to arrival, in the emergency department the symptoms are unchanged. The patient has experienced a previous episode, many years ago, but today's symptoms are worse. The patient has not recently seen a physician. Historical: - Allergies: 07:43 No Known Allergies; ss - PMHx: 07:43 Hypothyroidism; herniated disc; ss - PSHx: 07:43 ; Appendectomy; ss - Immunization history:: Adult Immunizations up to date. - Social history:: Smoking status: Patient denies any tobacco usage or history of. ROS: 17:12 Constitutional: Negative for fever, chills, and weight loss, Eyes: Negative for injury, kdr pain, redness, and discharge, ENT: Negative for injury, pain, and discharge, Neck: Negative for injury, pain, and swelling, Cardiovascular: Negative for chest pain, palpitations, and edema, Respiratory: Negative for shortness of breath, cough, wheezing, and pleuritic chest pain, Abdomen/GI: Negative for abdominal pain, nausea, vomiting, diarrhea, and constipation, : Negative for injury, bleeding, discharge, and swelling, MS/Extremity: Negative for injury and deformity, Skin: Negative for injury, rash, and discoloration, Neuro: Negative for headache, weakness, numbness, tingling, and seizure activity. Psych: Negative for depression, anxiety, suicide ideation, homicidal ideation, and hallucinations, Allergy/Immunology: Negative for hives, rash, and allergies, Endocrine: Negative for neck swelling, polydipsia, polyuria, polyphagia, and marked weight changes, Hematologic/Lymphatic: Negative for swollen nodes, abnormal bleeding, and unusual bruising. 17:12 Back: Positive for decreased range of motion, pain at rest, pain with movement, of the low back area. Exam: 17:12 Constitutional: This is a well developed, well nourished patient who is awake, alert, kdr and in no acute distress. Head/Face: Normocephalic, atraumatic. 17:12 Back: pain, that is moderate, that is severe, of the lumbar area and sacrum, ROM is painful, with all movement, normal spinal alignment noted, CVA tenderness, vertebral tenderness, is not appreciated, muscle spasm, is not present. Vital Signs: 07:41 BP 108 / 68; Pulse 80; Resp 16; Temp 97.8(TE); Pulse Ox 99% on R/A; Weight 63.05 kg; ss Height 5 ft. 1 in. (154.94 cm); Pain 10/10; 08:52 BP 123 / 70; Pulse 72; Resp 17; Pulse Ox 96% ; jl7 09:46 BP 112 / 66; Pulse 66; Resp 15; Pulse Ox 96% ; jl7 07:41 Body Mass Index 26.26 (63.05 kg, 154.94 cm) ss MDM: 09:36 Patient medically screened. kdr 17:12 Data reviewed: vital signs, radiologic studies. Counseling: I had a detailed discussion kdr with the patient and/or guardian regarding: the historical points, exam findings, and any diagnostic results supporting the discharge/admit diagnosis, radiology results, the need for outpatient follow up. 10/24 08:02 Order name: CT Lumbar Spine Wo Con; Complete Time: 09:21 kdr Administered Medications: 08:18 Drug: Zofran (Ondansetron) 4 mg Route: IVP; Site: right antecubital; jl7 08:56 Follow up: Response: No adverse reaction jl7 08:20 Drug: morphine 4 mg Route: IVP; Site: right antecubital; jl7 08:50 Follow up: Response: No adverse reaction; Pain is decreased jl7 08:22 Drug: SOLU-Medrol 125 mg Route: IVP; Site: right antecubital; jl7 08:50 Follow up: Response: No adverse reaction; Pain is decreased jl7 08:23 Drug: TORadol - Ketorolac 15 mg Route: IVP; Site: right antecubital; jl7 08:50 Follow up: Response: No adverse reaction; Pain is decreased jl7 Disposition: 10/24/20 09:36 Discharged to Home. Impression: Low back pain, Other intervertebral disc degeneration, lumbosacral region. - Condition is Stable. - Discharge Instructions: Degenerative Disk Disease, Back Pain, Adult, [id number], Herniated Disk, [id number]. - Prescriptions for Ibuprofen 600 mg Oral Tablet - take 1 tablet by ORAL route every 6 hours As needed take with food; 30 tablet. Robaxin 500 mg Oral Tablet - take 2 tablet by ORAL route every 6 hours As needed; 40 tablet. Tramadol 50 mg Oral Tablet - take 1 tablet by ORAL route every 4-6 hours As needed as needed; 16 tablet. Medrol (Ld) 4 mg Oral Tablets, Dose Pack - take 1 tablet by ORAL route as directed - follow package instructions; 1 packet. - Medication Reconciliation Form, Thank You Letter, Prescription Opioid Use, Work release form form. - Follow up: Private Physician; When: 2 - 3 days; Reason: If symptoms return, Further diagnostic work-up, Recheck today's complaints, Continuance of care, Re-evaluation by your physician. - Problem is new. - Symptoms have improved. Signatures: Dispatcher [employer] EDVT Dio Shearer MD MD kdr Tita Roberts RN RN Earl Daivd RN RN jl7 Corrections: (The following items were deleted from the chart) 09:50 09:36 10/24/2020 09:36 Discharged to Home. Impression: Low back pain; Other jl7 intervertebral disc degeneration, lumbosacral region. Condition is Stable. Forms are Medication Reconciliation Form, Thank You Letter, Antibiotic Education, Prescription Opioid Use. Follow up: Private Physician; When: 2 - 3 days; Reason: If symptoms return, Further diagnostic work-up, Recheck today's complaints, Continuance of care, Re-evaluation by your physician. Problem is new. Symptoms have improved. kdr
[2020-10-24 10:30] VITALS: TEMP 97.8
[2020-10-24 10:32] VITALS: O2SAT 96
[2020-10-24 10:33] VITALS: BP 112/66
== END 2020-10-24 09:50 | disposition home or self-care (01) ==
LOC: ER 07:34
DX: M51.37 Other intervertebral disc degeneration, lumbosacral region (principal)
CPT/HCPCS: 72131; 96375; 96374; 99284; J2930; J2405

== ENCOUNTER 2021-04-07 18:19 | Emergency (ER) | payer BC ==
[2021-04-07 19:58] LABS: Urine Blood Negative (Negative); Urine Glucose Negative (Negative); Urine Protein Trace (Negative)
--- NOTE | 2021-04-07 20:13 | RAD REPORT ---
EXAM DESCRIPTION: CT - Abdomen Pelvis Wo Contrast - 04/07/2021 8:01 pm CLINICAL HISTORY: Abdominal pain. ABD PAIN COMPARISON: No comparisons TECHNIQUE: CT imaging of the abdomen and pelvis was performed without contrast. Solid organ, bowel a nd vascular assessment is limited due to lack of IV and oral contrast. All CT scans are performed using dose optimization technique as appropriate and may include automated exposure control or mA/KV adjustment according to patient size. FINDINGS: The lower lung brody are clear.Small hiatal hernia. The liver, spleen, pancreas, adrenal glands and kidneys are within normal limits for a limited non-co ntrast examination. No bowel obstruction, free air, free fluid or abscess. Appendectomy. The osseous structures are within normal limits. IMPRESSION: No acute intra-abdominal or pelvic findings. A limited non-contrast examination was performed as detailed.
[2021-04-07 21:40] LABS: Basophils % 0.4 % (0-1.3); Hematocrit 39.8 % (36.0-45.0); Lymphocytes % 31.5 % (15.3-44.8); MPV 10.3 fL (7.6-11.3)
[2021-04-07 22:00] LABS: ALT/SGPT 23 U/L (12-78); AST/SGOT 13 U/L (15-37); Albumin 3.7 g/dL (3.4-5.0); Alkaline Phosphatase 71 U/L (45-117); BUN Blood Urea Nitrogen 14 mg/dL (7-18); Bicarbonate 27 mmol/L (21-32); Bilirubin Direct 0.1 mg/dL (0-0.2); Bilirubin Total 0.3 mg/dL (0.2-1.0); Glucose Level 107 mg/dL (74-106); Lipase 45 U/L (73-393); Potassium 3.2 mmol/L (3.5-5.1); Protein, Total 7.5 g/dL (6.4-8.2); Sodium Level 139 mmol/L (136-145)
--- NOTE | 2021-04-07 22:19 | ER ---
Nurse's Notes [facility] Name: Ying Terry Age: 45 yrs Sex: Female : 1975 Arrival Date: 04/07/2021 Time: 18:21 Bed 11 Private MD: Diagnosis: Acute cystitis;Abdominal pain, Generalized Presentation: 04/07 19:41 Chief complaint: Patient states: Pt stated for the last 2 wks I've had diarrhea and now kg I'm constipated and lots of pain. Coronavirus screen: Client denies travel out of the [place] in the last 14 days. At this time, unable to obtain information related to travel outside the [place] At this time, the client does not indicate any symptoms associated with coronavirus-19. Ebola Screen: Patient negative for fever greater than or equal to 101.5 degrees Fahrenheit, and additional compatible Ebola Virus Disease symptoms Patient denies exposure to infectious person. Patient denies travel to an Ebola-affected area in the 21 days before illness onset. Initial Sepsis Screen: Does the patient meet any 2 criteria? No. Patient's initial sepsis screen is negative. Does the patient have a suspected source of infection? No. Patient's initial sepsis screen is negative. Risk Assessment: Do you want to hurt yourself or someone else? Patient reports no desire to harm self or others. Onset of symptoms was April 07, 2021. 19:41 Method Of Arrival: Ambulatory kg 19:41 Acuity: WAQAR 3 kg Triage Assessment: 19:44 General: Appears in no apparent distress. distressed, Behavior is. Pain: Complains of kg pain in right lower quadrant and left lower quadrant. GI: Reports lower abdominal pain, constipation. 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 - Social history:: Smoking status: Patient denies any tobacco usage or history of. Screenin:00 Abuse screen: Denies threats or abuse. Denies injuries from another. Nutritional lp1 screening: No deficits noted. Tuberculosis screening: No symptoms or risk factors identified. Fall Risk None identified. Assessment: 21:19 General: Appears uncomfortable. Pain: Complains of pain in right lower quadrant Also lp1 complains of nausea. Neuro: No deficits noted. Cardiovascular: No deficits noted. Respiratory: No deficits noted. GI: Bowel sounds Abd is soft Abdomen is tender to palpation Reports bloating, diarrhea, Patient currently denies vomiting. : Reports urgency. EENT: No deficits noted. Derm: No deficits noted. Musculoskeletal: No deficits noted. Vital Signs: 19:44 BP 139 / 105; Pulse 74; Resp 20; Temp 98.1(TE); Pulse Ox 100% on R/A; Weight 61.23 kg; kg Height 5 ft. 1 in. (154.94 cm); Pain 5/10; 22:30 BP 136 / 84; Pulse 86; Resp 16; Temp 97.6; Pulse Ox 100% ; lp1 19:44 Body Mass Index 25.51 (61.23 kg, 154.94 cm) kg ED Course: 18:21 Patient arrived in ED. ds1 19:43 Triage completed. kg 19:44 Arm band placed on right wrist. kg 20:01 CT Abd/Pelvis - Without Contrast In Process Unspecified. EDMS 20:34 Subha Hannah, ADEN is Primary Nurse. kg 21:19 Inserted saline lock: 20 gauge in left antecubital area, using aseptic technique. Blood lp1 collected. 21:24 [facility] jr8 21:24 Usman Richardson MD is Attending Physician. jr8 22:00 Patient has correct armband on for positive identification. lp1 22:30 IV discontinued, intact, bleeding controlled, No redness/swelling at site. Pressure lp1 dressing applied. 22:30 No provider procedures requiring assistance completed. lp1 Administered Medications: 22:07 Drug: Dicyclomine 20 mg Route: IM; Site: left gluteus; lp1 22:32 Follow up: Response: No adverse reaction lp1 22:07 Drug: Zofran (Ondansetron) 4 mg Route: IVP; Site: left antecubital; lp1 22:32 Follow up: Response: Nausea is decreased lp1 22:07 Drug: Cipro (ciprofloxacin) 500 mg Route: PO; lp1 22:32 Follow up: Response: No adverse reaction lp1 Outcome: 22:18 Discharge ordered by . sabrina 22:30 Discharged to home ambulatory. lp1 22:30 Condition: good 22:30 Discharge instructions given to patient, Instructed on discharge instructions, follow up and referral plans. medication usage, Demonstrated understanding of instructions, follow-up care, medications, Prescriptions given X 3. 22:33 Patient left the ED. lp1 Signatures: Dispatcher [employer] EDNE Renetta Carlos ds1 Mariana Saul, RN RN lp1 Byron Blackburn PA PA jr8 Subha Hannah RN RN kg
--- NOTE | 2021-04-07 22:19 | EDPHYS ---
Physician Documentation [facility] Name: Ying Terry Age: 45 yrs Sex: Female : 1975 Arrival Date: 04/07/2021 Time: 18:21 Bed 11 Private MD: ED Physician Usman Richardson HPI: 04/07 22:15 This 45 yrs old Female presents to ER via Ambulatory with complaints of jr8 Abdominal Pain, Diarrhea. 22:15 Onset: The symptoms/episode began/occurred gradually. The symptoms do not radiate. jr8 Associated signs and symptoms: Pertinent positives: nausea, Diarrhea. The symptoms are described as crampy. Modifying factors: The symptoms are alleviated by nothing, the symptoms are aggravated by food. Severity of pain: At its worst the pain was moderate in the emergency department the pain is unchanged. The patient has not experienced similar symptoms in the past. The patient has not recently seen a physician. Patient stated that she has had about 2 weeks worth of diarrhea. Now has subsided but having lower abdominal cramping and urinary symptoms along with nausea. Stated that she feels like she has to have a bowel movement but has been unable to.. 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 - Social history:: Smoking status: Patient denies any tobacco usage or history of. ROS: 22:15 Eyes: Negative for injury, pain, redness, and discharge, ENT: Negative for injury, jr8 pain, and discharge, Neck: Negative for injury, pain, and swelling, Cardiovascular: Negative for chest pain, palpitations, and edema, Respiratory: Negative for shortness of breath, cough, wheezing, and pleuritic chest pain, Back: Negative for injury and pain, MS/Extremity: Negative for injury and deformity, Skin: Negative for injury, rash, and discoloration, Neuro: Negative for headache, weakness, numbness, tingling, and seizure. 22:15 Abdomen/GI: Positive for nausea, diarrhea, abdominal cramps. Exam: 22:15 Constitutional: This is a well developed, well nourished patient who is awake, alert, jr8 and in no acute distress. ENT: Nares patent. No nasal discharge, no septal abnormalities noted. Tympanic membranes are normal and external auditory canals are clear. Oropharynx with no redness, swelling, or masses, exudates, or evidence of obstruction, uvula midline. Mucous membranes moist. Cardiovascular: Regular rate and rhythm with a normal S1 and S2. No gallops, murmurs, or rubs. Normal PMI, no JVD. No pulse deficits. Respiratory: Lungs have equal breath sounds bilaterally, clear to auscultation and percussion. No rales, rhonchi or wheezes noted. No increased work of breathing, no retractions or nasal flaring. Back: No spinal tenderness. No costovertebral tenderness. Full range of motion. Skin: Warm, dry with normal turgor. Normal color with no rashes, no lesions, and no evidence of cellulitis. MS/ Extremity: Pulses equal, no cyanosis. Neurovascular intact. Full, normal range of motion. Neuro: Awake and alert, GCS 15, oriented to person, place, time, and situation. Cranial nerves II-XII grossly intact. Motor strength 5/5 in all extremities. Sensory grossly intact. 22:15 Abdomen/GI: Inspection: abdomen appears normal, Bowel sounds: active, all quadrants, Palpation: soft, in all quadrants, mild abdominal tenderness, in the suprapubic area and left lower quadrant, mass, is not appreciated, rebound tenderness, is not appreciated, voluntary guarding, is not appreciated, involuntary guarding, is not appreciated, no appreciated organomegaly, Indicators: McBurney's point is not tender, Ramos's sign is negative, Rovsing's sign is negative, Liver: tenderness, is not appreciated. Vital Signs: 19:44 BP 139 / 105; Pulse 74; Resp 20; Temp 98.1(TE); Pulse Ox 100% on R/A; Weight 61.23 kg; kg Height 5 ft. 1 in. (154.94 cm); Pain 5/10; 22:30 BP 136 / 84; Pulse 86; Resp 16; Temp 97.6; Pulse Ox 100% ; lp1 19:44 Body Mass Index 25.51 (61.23 kg, 154.94 cm) kg MDM: 21:25 Patient medically screened. jr8 22:14 Data reviewed: vital signs, nurses notes, lab test result(s), radiologic studies, CT jr8 scan. Data interpreted: Pulse oximetry: on room air is 100 %. Interpretation: normal. 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 Response to treatment: the patient's symptoms have mildly improved after treatment. ED course: Discussed with patient that she has a urinary tract infection. We will put her on antibiotics. Otherwise blood work without acute findings and CT with contrast of the abdomen and pelvis without acute findings. Patient has a follow-up visit with gastroenterology this Tuesday which she will keep. Knows to come back if worse. Otherwise we will put her on dicyclomine and some nausea medicine as well. 04/07 19:48 Order name: Basic Metabolic Panel; Complete Time: 22:13 kg 04/07 19:48 Order name: CBC with Diff; Complete Time: 22:13 kg 04/07 19:48 Order name: Hepatic Function; Complete Time: 22:13 kg 04/07 19:48 Order name: Lipase; Complete Time: 22:13 kg 04/07 19:58 Order name: Urine Dipstick-Ancillary; Complete Time: 21:29 EDMS 04/07 20:00 Order name: Urine --Ancillary (enter results); Complete Time: 21:29 ds4 04/07 19:48 Order name: IV Saline Lock; Complete Time: 21:19 kg 04/07 19:48 Order name: Labs collected and sent; Complete Time: 21:19 kg 04/07 19:48 Order name: CT Abd/Pelvis - Without Contrast; Complete Time: 21:29 kg 04/07 22:13 Order name: Urine Microscopic Only jr8 Administered Medications: 22:07 Drug: Dicyclomine 20 mg Route: IM; Site: left gluteus; lp1 22:32 Follow up: Response: No adverse reaction lp1 22:07 Drug: Zofran (Ondansetron) 4 mg Route: IVP; Site: left antecubital; lp1 22:32 Follow up: Response: Nausea is decreased lp1 22:07 Drug: Cipro (ciprofloxacin) 500 mg Route: PO; lp1 22:32 Follow up: Response: No adverse reaction lp1 Disposition: 04/08 07:51 Co-signature as Attending Physician, Usman Richardson MD I agree with the assessment and philip plan of care. Disposition Summary: 04/07/21 22:18 Discharge Ordered Location: Home jr8 Problem: new jr8 Symptoms: have improved jr8 Condition: Stable jr8 Diagnosis - Acute cystitis jr8 - Abdominal pain, Generalized jr8 Followup: jr8 - With: Private Physician - When: 2 - 3 days - Reason: Recheck today's complaints, Continuance of care, Re-evaluation by your physician Discharge Instructions: - Discharge Summary Sheet jr8 - Abdominal Pain, Adult jr8 - Urinary Tract Infection, Adult jr8 Forms: - Medication Reconciliation Form jr8 - Thank You Letter jr8 - Antibiotic Education jr8 - Prescription Opioid Use jr8 Prescriptions: - Cipro 500 mg Oral Tablet - take 1 tablet by ORAL route every 12 hours for 7 days; 14 tablet; Refills: 0, jr8 Product Selection Permitted - Zofran 4 mg Oral Tablet - take 1 tablet by ORAL route every 12 hours As needed; 20 tablet; Refills: 0, jr8 Product Selection Permitted - dicyclomine 20 mg Oral Tablet - take 1 tablet by ORAL route 3 times per day As needed; 20 tablet; Refills: 0, jr8 Product Selection Permitted Signatures: Dispatcher [employer] Usman Hendrickson MD MD cha Pena, Laura, RN RN lp1 Byron Blackburn PA PA jr8 Subha Hannah RN RN kg
[2021-04-07] MEDS ORDERED: CIPROFLOXACIN HCL 500 MG TAB ONE (22:23)
[2021-04-07] MEDS ORDERED: ONDANSETRON 4 MG/2 ML VIAL ONE (22:23)
[2021-04-07] MEDS ORDERED: DICYCLOMINE HCL 20 MG/2 ML AMP IM ONE (22:23)
[2021-04-07 22:47] VITALS: O2SAT 100
[2021-04-07 22:53] VITALS: BP 136/84; TEMP 97.6
[2021-04-08 00:18] LABS: Urine Bacteria LOADED /HPF (<20)
[2021-04-08 00:19] LABS: Urine RBC NONE SEEN /HPF (NONE SEEN); Urine Triple Phosphate Crystal FEW (NONE SEEN)
== END 2021-04-07 22:33 | disposition home or self-care (01) ==
LOC: ER 18:19
DX: N30.00 Acute cystitis without hematuria (principal); E03.9 Hypothyroidism, unspecified
CPT/HCPCS: 87088; 85025; 87086; 80048; 36415; 81025; 80076; 83690; 74176; 96372; 96374; 99284; J0500; J2405; 81003; 81015

== ENCOUNTER 2022-03-23 16:46 | Emergency (ER) | payer BC ==
--- OUTSIDE RECORDS SUMMARY | 2022-03-23 16:49 | XMS REPORT | Continuity of Care Document ---
:[address] [facility] t Address [address] [place] [address] [address] [place] [address] Care Team Providers Name Role Phone Garth_Ancelmo Attending Clinician Unavailable Garth_Ancelmo Admitting Clinician Unavailable Payers Payer Name Policy Type Policy Number Effective Date Expiration Date [place] [id number] 2016 00:00:00 [place] Problems Condition Condition Condition Status Onset Resolution Last Treating Co mments Source Name Details Category Date Date Treatment Clinician Date COVID-19 Covid-19 Problem Active [place] [facility] 1-25 Family 00:00: Practic 00 e Disorder Disorder Problem Active [place] [facility] of thyroid of Thyroid 3-13 Fa camilo gland Gland 00:00: Practic 00 e Venous Venous Problem Active [place] varices Varices 3-13 Family 00:00: Practic 00 e Allergies, Adverse Reactions, Alerts This patient has no known allergies or adverse reactions. Social History Smoking Status Start Date Stop Date Source Never Smoker [facility] Medications Ordered Filled Start Stop Current Ordering Indication Dosage Frequency Signature Comments Components Source Medication Medication Date Date Medication? Clinician (SIG) Name Name phentermine phentermine No phentermin [place] 37.5 mg 37.5 mg 3-14 e 37.5 mg Fami ly tablet TAKE tablet TAKE 00:00: tablet Practic 1 TABLET BY 1 TABLET BY 00 TAKE 1 e MOUTH EVERY MOUTH EVERY TABLET BY DAY DAY MOUTH EVERY DAY [place] No [place] Thyroid 30 Thyroid 30 Thyroid 30 Family mg tablet mg tablet mg tablet Practic TAKE 1 TAKE 1 TAKE 1 e TABLET BY TABLET BY TABLET BY MOUTH EVERY MOUTH EVERY MOUTH DAY ON DAY ON EVERY DAY EMPTY EMPTY ON EMPTY STOMACH STOMACH STOMACH bromphenira bromphenira No 10mL Q4H bromphenir [place] mine-pseudo mine-pseudo amine-pseu Family ephedrine-D ephedrine-D doephedrin Practic M 2 mg-30 M 2 mg-30 e-DM 2 e mg-10 mg/5 mg-10 mg/5 mg-30 mL oral mL oral mg-10 mg/5 syrup Take syrup Take mL oral 10 mL every 10 mL every syrup Take 4 hours by 4 hours by 10 mL oral route oral route every 4 as needed. as needed. hours by oral route as needed. fluticasone fluticasone fluticason [facility] propionate propionate e Fam greer 50 50 propionate Practic mcg/actuati mcg/actuati 50 e on nasal on nasal mcg/actuat spray,suspe spray,suspe ion nasal nsion SPRAY nsion SPRAY spray,susp 1 SPRAY 1 SPRAY ension INTO EACH INTO EACH SPRAY 1 NOSTRIL NOSTRIL SPRAY INTO EVERY DAY EVERY DAY EACH NOSTRIL EVERY DAY Medrol Medrol Medrol [facility] (Ld) 4 mg (Ld) 4 mg (Ld) 4 mg Family tablets in tablets in tablets in Practic a dose pack a dose pack a dose e Take med as Take med as pack Take directed on directed on med as package package directed on package Zithromax Zithromax No Zithromax [facility] Z-Ld 250 Z-Ld 250 Z-Ld 250 Family mg tablet mg tablet mg tablet Practic TAKE 2 TAKE 2 TAKE 2 e TABLETS TABLETS TABLETS (500 MG) BY (500 MG) BY (500 MG) ORAL ROUTE ORAL ROUTE BY ORAL ONCE DAILY ONCE DAILY ROUTE ONCE FOR 1 DAY FOR 1 DAY DAILY FOR THEN 1 THEN 1 1 DAY THEN TABLET (250 TABLET (250 1 TABLET MG) BY ORAL MG) BY ORAL (250 MG) ROUTE ONCE ROUTE ONCE BY ORAL DAILY FOR 4 DAILY FOR 4 ROUTE ONCE DAYS DAYS DAILY FOR 4 DAYS Vital Signs Vital Name Observation Time Observation Value Comments Source BP Diastolic 2021-11-09 00:00:00 77 mm[Hg] [facility] Height 2021-11-09 00:00:00 61 [in_i] [facility] BMI (Body Mass 2021-11-09 00:00:00 26.1 kg/m2 [facility] BP Systolic 2021-11-09 00:00:00 106 mm[Hg] [facility] Body Weight 2021-11-09 00:00:00 138 [lb_av] [facility] Procedures This patient has no known procedures. 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 Results This patient has no known results.
--- NOTE | 2022-03-23 19:43 | ER ---
Nurse's Notes [facility] Name: Ying Terry Age: 46 yrs Sex: Female : 1975 Arrival Date: 03/23/2022 Time: 16:48 Bed Waiting Private MD: Diagnosis: Coronavirus infection, unspecified Presentation: 03/23 17:30 Chief complaint: Sore throat, sinus congestion and drainage, and headache since this morning. Coronavirus screen: Client presents with at least one sign or symptom that may indicate coronavirus-19. Standard/surgical mask placed on the client. Provider contacted for isolation considerations. Ebola Screen: No symptoms or risks identified at this time. Initial Sepsis Screen: Does the patient meet any 2 criteria? No. Patient's initial sepsis screen is negative. Does the patient have a suspected source of infection? No. Patient's initial sepsis screen is negative. Risk Assessment: Do you want to hurt yourself or someone else? Patient reports no desire to harm self or others. Onset of symptoms was March 23, 2022. 17:30 Method Of Arrival: Ambulatory 17:30 Acuity: WAQAR 4 hb Triage Assessment: 17:31 General: Appears in no apparent distress. Behavior is calm, cooperative. Pain: Pain hb currently is 2 out of 10 on a pain scale. EENT: Reports sore throat, sinus congestion. Neuro: Level of Consciousness is awake, alert, obeys commands, Oriented to person, place, time, situation. Cardiovascular: Patient's skin is warm and dry. Respiratory: Respiratory effort is even, unlabored, Respiratory pattern is regular, symmetrical. Historical: - Allergies: 17:32 No Known Allergies; hb - Home Meds: 17:32 "throid medicine" [Active]; hb - PMHx: 17:32 Diverticulitis; Herniated disc; Hypothyroidism; hb - PSHx: 17:32 Appendectomy; section; hb - Immunization history:: Adult Immunizations up to date. - Social history:: Smoking status: Patient denies any tobacco usage or history of. Screenin:45 Abuse screen: Denies threats or abuse. Denies injuries from another. Nutritional hb screening: No deficits noted. Tuberculosis screening: No symptoms or risk factors identified. Fall Risk None identified. Vital Signs: 17:30 BP 126 / 88; Pulse 112; Resp 18; Temp 97.9; Pulse Ox 100% on R/A; Weight 63.05 kg; hb Height 5 ft. 1 in. (154.94 cm); Pain 2/10; 17:30 Body Mass Index 26.26 (63.05 kg, 154.94 cm) hb ED Course: 16:48 Patient arrived in ED. as 17:30 Usman Richardson MD is Attending Physician. philip 17:32 Triage completed. hb 17:32 Arm band placed on. hb 19:40 [facility]ccoy [facility] pm1 19:45 Patient has correct armband on for positive identification. hb 19:45 No provider procedures requiring assistance completed. Patient did not have IV access hb during this emergency room visit. Administered Medications: No medications were administered Medication: 19:45 VIS not applicable for this client. hb Outcome: 19:42 Discharge ordered by . pm1 19:45 Discharged to home ambulatory. hb 19:45 Condition: stable 19:45 Discharge instructions given to patient, Instructed on discharge instructions, follow up and referral plans. medication usage, Demonstrated understanding of instructions, follow-up care, medications. 20:11 Patient left the ED. pm1 Signatures: Usman Richardson MD MD cha Martinez, Amelia as Marinas, Patrick, NP NURSE PRACTITIONER pm1 Tigist Manzanares, RN RN hb
--- NOTE | 2022-03-23 19:43 | EDPHYS ---
Physician Documentation [facility] Name: Ying Terry Age: 46 yrs Sex: Female : 1975 Arrival Date: 03/23/2022 Time: 16:48 Bed Waiting Private MD: ED Physician Usman Richardson HPI: 03/23 19:46 This 46 yrs old Female presents to ER via Ambulatory with complaints of Sore pm1 Throat. 19:46 The patient presents with sore throat. The patient describes throat pain as raw, pm1 scratchy. 19:46 Onset: The symptoms/episode began/occurred this morning. Severity of symptoms: in the pm1 emergency department the symptoms are unchanged. Modifying factors: The symptoms are alleviated by nothing, the symptoms are aggravated by nothing, Patient's oral intake status: good unaware of sick contact. Associated signs and symptoms: Pertinent positives: rhinorrhea, bodyaches. The patient has not experienced similar symptoms in the past. The patient has not recently seen a physician. No known sick contacts. Historical: - Allergies: 17:32 No Known Allergies; hb - Home Meds: 17:32 "throid medicine" [Active]; hb - PMHx: 17:32 Diverticulitis; Herniated disc; Hypothyroidism; hb - PSHx: 17:32 Appendectomy; section; hb - Immunization history:: Adult Immunizations up to date. - Social history:: Smoking status: Patient denies any tobacco usage or history of. ROS: 19:46 Cardiovascular: Negative for chest pain, palpitations, and edema, Respiratory: Negative pm1 for shortness of breath, cough, wheezing, and pleuritic chest pain, Abdomen/GI: Negative for abdominal pain, nausea, vomiting, diarrhea, and constipation, MS/Extremity: Negative for injury and deformity, Skin: Negative for injury, rash, and discoloration, Neuro: Negative for headache, weakness, numbness, tingling, and seizure. 19:46 Constitutional: Positive for body aches, Negative for fever, poor PO intake. 19:46 ENT: Positive for rhinorrhea, sinus congestion, sore throat, Negative for ear pain. 19:46 All other systems are negative. Exam: 19:46 Constitutional: This is a well developed, well nourished patient who is awake, alert, pm1 and in no acute distress. Head/Face: Normocephalic, atraumatic. 19:46 Skin: Warm, dry with normal turgor. Normal color with no rashes, no lesions, and no evidence of cellulitis. MS/ Extremity: Pulses equal, no cyanosis. Neurovascular intact. Full, normal range of motion. 19:46 Eyes: Exam is negative for acute changes, Conjunctiva: no acute changes, no injection, Sclera: no acute changes, icterus, is not appreciated. 19:46 ENT: Exam is negative for acute changes, Mouth: no acute changes, Lips: normal, moist, Oral mucosa: normal, pink and intact, moist. 19:46 Cardiovascular: Exam negative for acute changes, Rate: normal, Rhythm: regular, Pulses: no pulse deficits are appreciated. 19:46 Respiratory: Exam negative for acute changes, respiratory distress, shortness of breath. 19:46 Neuro: Exam negative for acute changes, Orientation: is normal, Mentation: is normal, Motor: is normal, moves all fours. Vital Signs: 17:30 BP 126 / 88; Pulse 112; Resp 18; Temp 97.9; Pulse Ox 100% on R/A; Weight 63.05 kg; hb Height 5 ft. 1 in. (154.94 cm); Pain 2/10; 17:30 Body Mass Index 26.26 (63.05 kg, 154.94 cm) hb MDM: 17:30 Patient medically screened. [facility] 19:40 Data reviewed: vital signs. Data interpreted: Pulse oximetry: on room air is 100 %. pm1 Interpretation: normal. 19:41 Counseling: I had a detailed discussion with the patient and/or guardian regarding: the pm1 historical points, exam findings, and any diagnostic results supporting the discharge/admit diagnosis, lab results, the need for outpatient follow up, to return to the emergency department if symptoms worsen or persist or if there are any questions or concerns that arise at home. 03/23 17:37 Order name: Flu; Complete Time: 19:41 hb 03/23 17:37 Order name: Strep; Complete Time: 19:41 hb 03/23 17:37 Order name: COVID-19 SARS RT PCR (Document "Date of Onset" if Symptomatic); Complete hb Time: 19:41 03/23 18:58 Order name: Throat Culture EDMS Administered Medications: No medications were administered Disposition Summary: 03/23/22 19:42 Discharge Ordered Location: Home pm1 Problem: new pm1 Symptoms: have improved pm1 Condition: Stable pm1 Diagnosis - Coronavirus infection, unspecified pm1 Followup: pm1 - With: Emergency Department - When: As needed - Reason: Worsening of condition Followup: pm1 - With: Private Physician - When: 2 - 3 days - Reason: Recheck today's complaints, Continuance of care, Re-evaluation by your physician Discharge Instructions: - Discharge Summary Sheet pm1 - COVID-19 pm1 - COVID-19 Frequently Asked Questions pm1 - 10 Things You Can Do to Manage Your COVID-19 Symptoms at Home - [facility] pm1 - COVID-19: Quarantine vs. Isolation - [facility] pm1 Forms: - Work release form pm1 - Medication Reconciliation Form pm1 - Thank You Letter pm1 - Antibiotic Education pm1 - Prescription Opioid Use pm1 Signatures: Dispatcher [employer] EDUsman Soni MD MD cha Marinas, Patrick, MANAGER CONSUMER MANAGER CONSUMER pm1 Tigist Manzanares RN RN
[2022-03-23 20:20] VITALS: BP 126/88; TEMP 97.9; O2SAT 100
== END 2022-03-23 20:11 | disposition home or self-care (01) ==
LOC: ER 16:46
DX: U07.1 COVID-19 (principal); E03.9 Hypothyroidism, unspecified
CPT/HCPCS: 87070; 87081; 87804 ×2; 99281; U0003

== ENCOUNTER 2022-06-26 18:14 | Emergency (ER) | payer BC ==
--- OUTSIDE RECORDS SUMMARY | 2022-06-26 18:16 | XMS REPORT | Continuity of Care Document ---
:1975 Author Organization [facility] Address [address] [place] [address] [address] [place] [address] Care Team Providers Name Role Phone Garth_Ancelmo Attending Clinician Unavailable Garth_Ancelmo Admitting Clinician Unavailable Payers Payer Name Policy Type Policy Number Effective Date Expiration Date [place] [id number] 2016 00:00:00 [place] Problems Condition Condition Condition Status Onset Resolution Last Treating Co mments Source Name Details Category Date Date Treatment Clinician Date COVID19 Covid-19 Problem Active Guerrero ge 1-25 Family [...] TABLET BY DAY DAY MOUTH EVERY DAY [facility] Thyroid 30 Thyroid 30 Thyroid 30 Family mg tablet mg tablet mg tablet Practic TAKE 1 TAKE 1 TAKE 1 e TABLET BY TABLET BY TABLET BY MOUTH EVERY MOUTH EVERY MOUTH DAY ON DAY ON EVERY DAY EMPTY EMPTY ON EMPTY STOMACH STOMACH STOMACH ergocalcife ergocalcife No ergocalcif [facility] rol rol dot Family (vitamin (vitamin (vitamin Pra ctic D2) 1,250 D2) 1,250 D2) 1,250 e mcg (50,000 mcg (50,000 mcg unit) unit) (50,000 capsule capsule unit) TAKE 1 TAKE 1 capsule CAPSULE BY CAPSULE BY TAKE 1 MOUTH ONCE MOUTH ONCE CAPSULE BY PER WEEK PER WEEK MOUTH ONCE PER WEEK Latisse Latisse No Latisse Villag e 0.03 % 0.03 % 0.03 % Family eyelash eyelash eyelash Practi c drops APPLY drops APPLY drops e 1 DROP TO 1 DROP TO APPLY 1 APPLICATOR APPLICATOR DROP TO AND APPLY AND APPLY APPLICATOR TO UPPER TO UPPER AND APPLY EYELID, EYELID, TO UPPER ALONG ALONG EYELID, EYELASHES, EYELASHES, ALONG BY TOPICAL BY TOPICAL EYELASHES, ROUTE ONCE ROUTE ONCE BY TOPICAL DAILY AT DAILY AT ROUTE ONCE NIGHTTIME NIGHTTIME DAILY AT NIGHTTIME Vital Signs Vital Name Observation Time Observation Value Comments Source BP Diastolic 2022-04-27 00:00:00 81 mm[Hg] [facility] Height 2022-04-27 00:00:00 61 [in_i] [facility] BMI (Body Mass 2022-04-27 00:00:00 28.5 kg/m2 [facility] Index) Practice BP Systolic 2022-04-27 00:00:00 118 mm[Hg] [facility] Body Weight 2022-04-27 00:00:00 151 [lb_av] [facility] BP Diastolic 2021-11-09 00:00:00 77 mm[Hg] [facility] Height 2021-11-09 00:00:00 61 [in_i] [facility] BMI (Body Mass 2021-11-09 00:00:00 26.1 kg/m2 [facility] Index) Practice BP Systolic 2021-11-09 00:00:00 106 mm[Hg] [facility] Body Weight 2021-11-09 00:00:00 138 [lb_av] [facility] Procedures This patient has no known procedures. Encounters Start End Encounter Admission Attending Care Care Encounter Source Date/Time Date/Time Type Type Clinicians Facility Department ID 2022-06-08 2022-06-08 Outpatient Garth_R VFP VFP [id number] [id number] [facility] 00:00:00 00:00:00 [id number] Family Practic e 2022-05-04 2022-05-04 Outpatient Jackson_R VFP VFP [id number] 94-20 [facility] 00:00:00 00:00:00 [id number] Family Practic e 2022-05-01 2022-05-01 Outpatient Jackson_R VFP VFP [id number] [id number] [facility] 00:00:00 00:00:00 [id number] Family Practic e 2022-04-27 2022-04-27 Ellen Jackson_R VFP [place] - [id number] 4-20 [facility] 00:00:00 00:00:00 [facility] [id number] Family CARDIO TECH: [id number] Medical - Prac tic Shadow VM_HOU_Shad e [facility] [address] [address] , Ph. 2022-04-26 2022-04-26 Outpatient Jackson_R VFP VFP [id number] [id number] [facility] 00:00:00 00:00:00 [id number] Family Practic e 2022-03-30 2022-03-30 Outpatient Jackson_R VFP VFP [id number] 94-20 [facility] 00:00:00 00:00:00 [id number] Family Practic e 2021-11-15 2021-11-15 Outpatient Jackson_R VFP VFP [id number] 94-20 [facility] 05:45:00 05:45:00 [id number] Family Practic e 2021-11-09 2021-11-09 Ronnalyn Jackson_R VFP [place] - [id number] -[id number] [facility] 00:00:00 00:00:00 [facility] [id number] Famil y CARDIO TECH: [id number] Medical - Prac tic Shadow VM_HOU_Shad e [facility], [address] [address] , Ph. Results This patient has no known results.
[2022-06-26] MEDS ORDERED: ONDANSETRON 4 MG/2 ML VIAL ONE (18:55)
[2022-06-26] MEDS ORDERED: MORPHINE 4 MG/ML SYR ONE (18:55)
[2022-06-26] MEDS ORDERED: NA CHLORIDE 0.9% 1,000 ML ONE (18:55)
[2022-06-26 19:26] LABS: Absolute Lymphocytes (CBC) 1.3 K/uL (0.7-4.9); Lymphocytes % 16.2 % (15.3-44.8); MCV 86.6 fL (80-100); MPV 9.2 fL (7.6-11.3); RBC Red Blood Cell Count 4.85 M/uL (3.86-4.86)
[2022-06-26 19:39] LABS: Albumin 3.8 g/dL (3.4-5.0); Bilirubin Total 0.2 mg/dL (0.2-1.0); Potassium 3.4 mmol/L (3.5-5.1)
[2022-06-26 20:55] LABS: Urine Blood Negative (Negative); Urine Glucose Negative (Negative); Urine Protein Negative (Negative)
[2022-06-26 21:15] LABS: Urine Mucus Slight /HPF (None Seen); Urine RBC <5 /HPF (None Seen)
--- NOTE | 2022-06-26 21:18 | RAD REPORT ---
EXAM DESCRIPTION: CT - Abdomen Pelvis W Contrast - 06/26/2022 8:47 pm CLINICAL HISTORY: rectal pain COMPARISON: Abdomen Pelvis Wo Contrast dated 04/07/2021 TECHNIQUE: Biphasic, helical CT imaging of the abdomen and pelvis was performed following 100 ml non -ionic IV contrast. No oral contrast administered. All CT scans are performed using dose optimization technique as appropriate and may include automated exposure control or mA/KV adjustment according to patient size. FINDINGS: No suspicious findings in the lung bases. The liver, spleen, and pancreas show no suspicious findings. Gallbladder and biliary tree are also wi thout suspicious finding. Symmetric renal function is seen with no hydronephrosis or suspicious renal mass. No pyelonephritis o r acute parenchymal process. No bladder abnormalities. No adrenal abnormalities. Uterus and ovaries s how no suspicious findings. No gastric abnormality seen. No small bowel abnormalities. There is no evidence of appendicitis. Mode rate stool volume seen in the right-side of the colon. Rectum is dilated to 6.5 cm. No rectal wall th ickening or mass identified. Acute colon process is not seen. No free air, free fluid or pneumatosis. No peritoneal or retroperitoneal inflammatory stranding. Stra nding is seen across the lateral and anterior abdominal wall subcutaneous fat. This is new from 2020. No surgical procedure history detailed. No air or foreign body in the subcutaneous fatty tissues. N o hernia, mass or bulky lymphadenopathy. No suspicious bony findings. IMPRESSION: Contrast enhanced CT abdomen and pelvis showing no acute or emergent finding. Rectum is dilated to 6.5 cm by stool with no acute colon finding identifiable Non specific stranding in the anterior and lateral subcutaneous fatty tissues of the abdomen. Correla tion is needed with any cellulitis findings are history of abdominal procedure.
[2022-06-26] MEDS ORDERED: BISACODYL 10 MG RECTAL SUPP ONE (21:47)
[2022-06-26] MEDS ORDERED: LACTULOSE 20 GM/30 ML UCUP ONE (21:47)
--- NOTE | 2022-06-26 22:56 | ER ---
Nurse's Notes [facility] Name: Ying Terry Age: 46 yrs Sex: Female : 1975 Arrival Date: 06/26/2022 Time: 18:15 Bed 5 Private MD: Diagnosis: Fecal impaction;Constipation, unspecified Presentation: 06/26 18:25 Chief complaint: Bright red rectal bleeding and rectal pain 8/10 today. Also reports hb feeling constipated, last BM was yesterday. Coronavirus screen: At this time, the client does not indicate any symptoms associated with coronavirus-19. Ebola Screen: No symptoms or risks identified at this time. Risk Assessment: Do you want to hurt yourself or someone else? Patient reports no desire to harm self or others. Onset of symptoms was June 26, 2022. 18:25 Method Of Arrival: Ambulatory hb 18:25 Acuity: WAQAR 3 hb 23:26 Initial Sepsis Screen: Does the patient meet any 2 criteria? No. Patient's initial as6 sepsis screen is negative. Does the patient have a suspected source of infection? No. Patient's initial sepsis screen is negative. Historical: - Allergies: 18:26 No Known Drug Allergies; hb - Immunization history:: Adult Immunizations unknown. - Social history:: Smoking status: unknown. Screenin:22 Abuse screen: Denies threats or abuse. Denies injuries from another. Nutritional tp1 screening: No deficits noted. Tuberculosis screening: No symptoms or risk factors identified. Fall Risk None identified. Assessment: 18:46 General: Appears uncomfortable, Behavior is cooperative, appropriate for age. Pain: mb9 Complains of pain in rectum Pain currently is 8 out of 10 on a pain scale. Quality of pain is described as pressure, Pain began 1 day ago. Neuro: Level of Consciousness is awake, alert, obeys commands, Oriented to person, place, time, situation, Appropriate for age. Cardiovascular: Heart tones S1 S2 present. Respiratory: Airway is patent Respiratory effort is even, unlabored, Respiratory pattern is regular, symmetrical. GI: Abdomen is flat, non-distended, Bowel sounds present X 4 quads. Abd is soft and non tender X 4 quads. Reports diarrhea, bloody stool. : No signs and/or symptoms were reported regarding the genitourinary system. EENT: No signs and/or symptoms were reported regarding the EENT system. Derm: Skin is pink, warm \T\ dry. Musculoskeletal: Range of motion: intact in all extremities. 18:50 GI: Abdomen is flat, non-distended, Abd is non tender firm X4 quadrants. tp1 19:15 Reassessment: Called CT to inform them pt finished oral contrast. mb9 21:53 Reassessment: Patient appears in no apparent distress at this time. No changes from tp1 previously documented assessment. Patient and/or family updated on plan of care and expected duration. Pain level reassessed. Patient is alert, oriented x 3, equal unlabored respirations, skin warm/dry/pink. Patient denies pain at this time. Vital Signs: 18:25 BP 140 / 97; Pulse 96; Resp 16; Temp 98.4; Pulse Ox 100% on R/A; Weight 61.23 kg; hb Height 5 ft. 1 in. (154.94 cm); Pain 8/10; 19:13 BP 134 / 81; Pulse 84; Resp 18; Pulse Ox 100% on R/A; mb9 21:00 BP 130 / 79; Pulse 75; Resp 18 S; Pulse Ox 99% on R/A; as6 22:22 BP 154 / 89; Pulse 69; Resp 16; Pulse Ox 99% on R/A; tp1 23:26 BP 139 / 74; Pulse 72; Resp 16 S; Pulse Ox 100% on R/A; as6 18:25 Body Mass Index 25.51 (61.23 kg, 154.94 cm) hb ED Course: 18:15 Patient arrived in ED. am2 18:19 Usman Spears PA is PHCP. cp 18:19 Dio Shearer MD is Attending Physician. cp 18:26 Triage completed. hb 18:30 Patient has correct armband on for positive identification. Placed in gown. Bed in low mb9 position. Call light in reach. Side rails up X 1. 18:37 Jackie Morton, ADEN is Primary Nurse. tp1 18:52 Served as a courtroom reporter during rectal exam. mb9 19:13 Inserted saline lock: 20 gauge in right antecubital area, using aseptic technique. mb9 Blood collected. 19:15 CBC with Diff Sent. mb9 19:15 CMP Sent. mb9 19:15 Lipase Sent. mb9 20:49 CT Abd/Pelvis - PO and IV Contrast In Process Unspecified. EDMS 20:55 Urine Microscopic Only Sent. as6 21:22 Assisted to bedside commode. as6 23:26 IV discontinued, intact, bleeding controlled, No redness/swelling at site. Pressure as6 dressing applied. Administered Medications: 19:12 Drug: morphine 4 mg Route: IVP; Infused Over: 4 mins; Site: right antecubital; mb9 23:24 Follow up: Response: No adverse reaction as6 19:12 Drug: Zofran (Ondansetron) 4 mg Route: IVP; Site: right antecubital; mb9 23:25 Follow up: Response: No adverse reaction as6 19:12 Drug: NS 0.9% 1000 ml Route: IV; Rate: 1 bolus; Site: right antecubital; mb9 23:25 Follow up: Response: No adverse reaction; IV Status: Completed infusion; IV Intake: as6 1000ml 21:53 Drug: Lactulose 30 grams Volume: 45 ml; Route: PO; tp1 23:25 Follow up: Response: No adverse reaction as6 21:53 Drug: Dulcolax (bisacodyl) Suppository 10 mg Route: AK; tp1 23:25 Follow up: Response: No adverse reaction as6 23:24 Drug: Potassium Effervescent Tablet 25 mEq Route: PO; as6 23:25 Follow up: Response: No adverse reaction as6 Medication: 23:26 VIS not applicable for this client. as6 Intake: 23:25 IV: 1000ml; Total: 1000ml. as6 Outcome: 22:55 Discharge ordered by . cp 23:26 Discharged to home ambulatory, with significant other. as6 23:26 Condition: stable 23:26 Discharge instructions given to patient, Instructed on discharge instructions, follow up and referral plans. medication usage, Demonstrated understanding of instructions, follow-up care, medications, Prescriptions given X 1. 23:27 Patient left the ED. as6 Signatures: Dispatcher [employer] EDMS Usman Spears PA PA cp Baxter, Heather, RN RN hb Moreno, Amanda am2 Reza Al RN RN as6 Jackie Morton RN RN tp1 Adriana Claudio RN RN mb9 Corrections: (The following items were deleted from the chart) 21:10 18:46 GI: Abdomen is flat, non-distended, Bowel sounds present X 4 quads. Abd is soft tp1 and non tender X 4 quads. Reports diarrhea, bloody stool, mb9 21:11 18:50 GI: Abdomen is flat, non-distended, Abd is non tender Abd is rigid X 4 quads. tp1 tp1
--- NOTE | 2022-06-26 22:56 | EDPHYS ---
Physician Documentation [facility] Name: Ying Terry Age: 46 yrs Sex: Female : 1975 Arrival Date: 06/26/2022 Time: 18:15 Bed 5 Private MD: ED Physician Dio Shearer HPI: 06/26 18:55 This 46 yrs old Female presents to ER via Ambulatory with complaints of cp Constipation, Rectal Bleeding. 18:55 The patient presents to the emergency department with bleeding from the rectum/anus, cp pain in the rectal area, that is severe. Onset: The symptoms/episode began/occurred today. 18:55 Associate signs and symptoms: Pertinent positives: constipation, lower GI bleeding, cp bright red, Pertinent negatives: diarrhea, fever, vomiting. 18:55 Patient reports she was able to have small bowel movement yesterday. cp Historical: - Allergies: 18:26 No Known Drug Allergies; hb - Immunization history:: Adult Immunizations unknown. - Social history:: Smoking status: unknown. ROS: 19:00 Constitutional: Negative for fever. cp 19:00 Eyes: Negative for injury, pain, redness, and discharge. cp 19:00 ENT: Negative for drainage from ear(s), ear pain, sore throat, difficulty swallowing, difficulty handling secretions. 19:00 Cardiovascular: Negative for chest pain, edema, palpitations. 19:00 Respiratory: Negative for cough, shortness of breath, wheezing. 19:00 Abdomen/GI: Positive for constipation, rectal pain, rectal bleeding, Negative for abdominal pain, nausea, vomiting, and diarrhea. 19:00 Back: Negative for pain at rest, pain with movement. 19:00 : Negative for urinary symptoms. 19:00 All other systems are negative. Exam: 19:05 Constitutional: The patient appears in no acute distress, alert, awake, cp non-diaphoretic, non-toxic, well developed, well nourished, uncomfortable. 19:05 Head/Face: Normocephalic, atraumatic. cp 19:05 Eyes: Periorbital structures: appear normal, Conjunctiva: normal, no exudate, no injection, Sclera: no appreciated abnormality, Lids and lashes: appear normal, bilaterally. 19:05 ENT: External ear(s): are unremarkable, Nose: is normal, Mouth: Lips: moist, Oral mucosa: pink and intact, moist, Posterior pharynx: Airway: no evidence of obstruction, patent. 19:05 Chest/axilla: Inspection: normal. 19:05 Cardiovascular: Rate: normal, Rhythm: regular, Edema: is not appreciated, JVD: is not appreciated. 19:05 Respiratory: the patient does not display signs of respiratory distress, Respirations: normal, no use of accessory muscles, no retractions, labored breathing, is not present, Breath sounds: are clear throughout, no decreased breath sounds, no stridor, no wheezing. 19:05 Abdomen/GI: Inspection: abdomen appears normal, Bowel sounds: active, all quadrants, Palpation: abdomen is soft and non-tender, in all quadrants, Rectal exam: rectal tone normal, Stool: brown, guaiac negative, hemorrhoid(s), are not appreciated, swelling, is not appreciated, tenderness, that is severe, fecal impaction, that is moderate. Vital Signs: 18:25 BP 140 / 97; Pulse 96; Resp 16; Temp 98.4; Pulse Ox 100% on R/A; Weight 61.23 kg; hb Height 5 ft. 1 in. (154.94 cm); Pain 8/10; 19:13 BP 134 / 81; Pulse 84; Resp 18; Pulse Ox 100% on R/A; mb9 21:00 BP 130 / 79; Pulse 75; Resp 18 S; Pulse Ox 99% on R/A; as6 22:22 BP 154 / 89; Pulse 69; Resp 16; Pulse Ox 99% on R/A; tp1 23:26 BP 139 / 74; Pulse 72; Resp 16 S; Pulse Ox 100% on R/A; as6 18:25 Body Mass Index 25.51 (61.23 kg, 154.94 cm) hb MDM: 18:27 Patient medically screened. cp 19:00 Differential diagnosis: hemorrhoids, fissure, abscess, fecal impaction, colon cp obstruction. 22:55 Data reviewed: vital signs, nurses notes, lab test result(s), radiologic studies, CT cp scan. 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 Response to treatment: the patient's symptoms have mildly improved after treatment, and as a result, I will discharge patient. ED course: Patient reports small bowel movement here in ED. CT abdomen/pelvis negative for obstruction. Will discharge to home for continued monitoring. Recommend enema and GI f/u. 06/26 18:52 Order name: CBC with Diff; Complete Time: 19:54 cp 06/26 19:55 Interpretation: Normal except: TRAN% 76.0. cp 06/26 18:52 Order name: CMP; Complete Time: 19:54 cp 06/26 19:55 Interpretation: Normal except: GFR 83; K 3.4; GLOB 4.2; A/G 0.9. cp 06/26 18:52 Order name: Lipase; Complete Time: 19:54 cp 06/26 18:52 Order name: Urine Microscopic Only; Complete Time: 21:32 cp 06/26 20:55 Order name: Urine --Ancillary (enter results); Complete Time: 21:32 mw2 06/26 20:56 Order name: Urine Dipstick-Ancillary; Complete Time: 21:32 EDMS 06/26 18:52 Order name: CT Abd/Pelvis - PO and IV Contrast; Complete Time: 21:32 cp 06/26 18:52 Order name: IV Saline Lock; Complete Time: 19:12 cp 06/26 18:52 Order name: Labs collected and sent; Complete Time: 19:12 cp 06/26 18:52 Order name: Urine Dipstick-Ancillary (obtain specimen); Complete Time: 20:55 cp 06/26 18:52 Order name: Urine Test (obtain specimen); Complete Time: 20:55 cp Administered Medications: 19:12 Drug: morphine 4 mg Route: IVP; Infused Over: 4 mins; Site: right antecubital; mb9 23:24 Follow up: Response: No adverse reaction as6 19:12 Drug: Zofran (Ondansetron) 4 mg Route: IVP; Site: right antecubital; mb9 23:25 Follow up: Response: No adverse reaction as6 19:12 Drug: NS 0.9% 1000 ml Route: IV; Rate: 1 bolus; Site: right antecubital; mb9 23:25 Follow up: Response: No adverse reaction; IV Status: Completed infusion; IV Intake: as6 1000ml 21:53 Drug: Lactulose 30 grams Volume: 45 ml; Route: PO; tp1 23:25 Follow up: Response: No adverse reaction as6 21:53 Drug: Dulcolax (bisacodyl) Suppository 10 mg Route: CO; tp1 23:25 Follow up: Response: No adverse reaction as6 23:24 Drug: Potassium Effervescent Tablet 25 mEq Route: PO; as6 23:25 Follow up: Response: No adverse reaction as6 Disposition: 06/27 10:17 Co-signature as Attending Physician, Dio Shearer MD I agree with the assessment and kdr plan of care. Disposition Summary: 06/26/22 22:55 Discharge Ordered Location: Home cp Problem: new cp Symptoms: have improved cp Condition: Stable cp Diagnosis - Fecal impaction cp - Constipation, unspecified cp Followup: cp - With: Private Physician - When: 2 - 3 days - Reason: Recheck today's complaints Discharge Instructions: - Discharge Summary Sheet cp - Constipation, Adult cp - High-Fiber Diet cp - Fecal Impaction cp Forms: - Medication Reconciliation Form cp - Thank You Letter cp - Antibiotic Education cp - Prescription Opioid Use cp Prescriptions: - Miralax - take 1 application by ORAL route once daily As needed; 1 bottle; Refills: 0, cp Product Selection Permitted Signatures: Dispatcher [employer] Dio Patricio MD MD kdr Page, Corey, PA PA cp Tigist Manzanares RN ADEN Reza Al RN RN as6 Jackie Morton RN RN tp1 Adriana Claudio RN RN mb9
[2022-06-26] MEDS ORDERED: POTASSIUM 25 MEQ EFFERV TAB ONE (23:19)
[2022-06-26 23:57] VITALS: TEMP 98.4
[2022-06-27 00:20] VITALS: BP 139/74; O2SAT 100
== END 2022-06-26 23:27 | disposition home or self-care (01) ==
LOC: ER 18:14
DX: K56.41 Fecal impaction (principal)
CPT/HCPCS: 96361; 85025; 36415; 81025; 83690; 80053; 74177; 96375; 96374; 99284; Q9967; J7030; J2405; 81003; 81015

== ENCOUNTER 2022-10-18 17:39 | Emergency (ER) | payer BC ==
--- OUTSIDE RECORDS SUMMARY | 2022-10-18 17:41 | XMS REPORT | Continuity of Care Document ---
:1975 Author Organization [facility] Address [address] [place] [address] Care Team Providers Name Role Phone Garth_Ancelmo Attending Clinician Unavailable Garth_Ancelmo Admitting Clinician Unavailable Payers Payer Name Policy Type Policy Number Effective Date Expiration Date [place] [id number] 2016 00:00:00 [place] Problems Condition Condition [...] TABLET BY DAY DAY MOUTH EVERY DAY [place] No [place] [facility] Thyroid 30 Thyroid 30 Thyroid 30 Family mg tablet mg tablet mg tablet Practic TAKE 1 TAKE 1 TAKE 1 e TABLET BY TABLET BY TABLET BY MOUTH EVERY MOUTH EVERY MOUTH DAY ON DAY ON EVERY DAY EMPTY EMPTY ON EMPTY STOMACH STOMACH STOMACH ergocalcife ergocalcife No ergocalcif [facility] rol rol dot Family (vitamin (vitamin [...] e 0.03 % 0.03 % 0.03 % [facility] eyelash eyelash eyelash Practi c drops APPLY [...] Source BP Diastolic 2022-04-27 00:00:00 81 mm[Hg] [facility] Height 2022-04-27 00:00:00 61 [in_i] [facility] BMI (Body Mass 2022-04-27 00:00:00 28.5 kg/m2 [facility] Index) Practice BP Systolic 2022-04-27 00:00:00 118 mm[Hg] [facility] Body Weight 2022-04-27 00:00:00 151 [lb_av] [facility] BP Diastolic 2021-11-09 00:00:00 77 mm[Hg] [facility] Height 2021-11-09 00:00:00 61 [in_i] [facility] BMI (Body Mass 2021-11-09 00:00:00 26.1 kg/m2 [facility] Index) Practice BP Systolic 2021-11-09 00:00:00 106 mm[Hg] [facility] Body Weight 2021-11-09 00:00:00 138 [lb_av] [facility] Procedures This patient has no known procedures. Encounters Start End Encounter Admission Attending Care Care Encounter Source Date/Time Date/Time Type Type Clinicians Facility Department ID 2022-07-13 2022-07-13 Outpatient Reagan MAURICIOP [place] [id number] [facility] 00:00:00 00:00:00 [id number] Family Practic e 2022-06-08 2022-06-08 Outpatient Jackson_R VFP VFP [id number] [id number] [facility] 00:00:00 00:00:00 [id number] Family Practic e 2022-05-04 2022-05-04 Outpatient Jackson_R VFP [place]FP [id number] [id number] [place] 00:00:00 00:00:00 [id number] Family Practic e 2022-05-01 2022-05-01 Outpatient Jackson_R VFP VFP [id number] [id number] [facility] 00:00:00 00:00:00 [id number] Family Practic e 2022-04-27 2022-04-27 Ellen Jackson_R VFP [place] - [id number] [facility] 00:00:00 00:00:[address] 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 2022-04-26 2022-04-26 Outpatient Jackson_R VFP VFP [id number] [id number] [facility] 00:00:00 00:00:00 [id number] Family Practic e 2022-03-30 2022-03-30 Outpatient Jackson_R VFP VFP [id number] [id number] [facility] 00:00:00 00:00:00 [id number] Family Practic e 2021-11-15 2021-11-15 Outpatient Jackson_R VFP VFP [id number] [id number] [facility] 05:45:00 05:45:00 [id number] Family Practic e 2021-11-09 2021-11-09 Ronnalyn Jackson_R VFP [place] - [id number] [facility] 00:00:00 00:00:00 [facility] [id number] Famil y FARM PRODUCT PURCHASER: [id number] Medical - Prac tic Shadow VM_HOU_Shad e [facility], [facility] [address], [place] [address] , Ph. Results This patient has no known results.
[2022-10-18] MEDS ORDERED: LIDOCAINE 1% MPF 5 ML VIAL ONE (20:07)
[2022-10-18] MEDS ORDERED: BUPIVACAINE 0.5% PF 10 ML VIAL ONE (20:07)
[2022-10-18] MEDS ORDERED: AMOX/K CLAV 875 MG TAB ONE (20:08)
[2022-10-18] MEDS ORDERED: TDAP (DIPHTH,PERTUSS(ACELL),TET VAC) 0.5 ML VIAL IMVAC ONE (20:08)
--- NOTE | 2022-10-18 20:45 | ER ---
Nurse's Notes [facility] Name: Ying Terry Age: 46 yrs Sex: Female : 1975 Arrival Date: 10/18/2022 Time: 17:40 Bed DIS4 Private MD: Diagnosis: Bitten by cat Presentation: 10/18 18:50 Chief complaint: Patient states: Cat bit right thumb 9 days ago, reports continued pain jl7 and swelling. Coronavirus screen: At this time, the client does not indicate any symptoms associated with coronavirus-19. Ebola Screen: No symptoms or risks identified at this time. Initial Sepsis Screen: Does the patient meet any 2 criteria? No. Patient's initial sepsis screen is negative. Does the patient have a suspected source of infection? No. Patient's initial sepsis screen is negative. Risk Assessment: Do you want to hurt yourself or someone else? Patient reports no desire to harm self or others. Onset of symptoms was October 09, 2022. 18:50 Method Of Arrival: Ambulatory jl7 18:50 Acuity: WAQAR 4 jl7 Triage Assessment: 21:03 General: Appears in no apparent distress. Behavior is calm, cooperative. Pain: Denies as6 pain. 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 - Social history:: Smoking status: Patient denies any tobacco usage or history of. Screenin:02 [facility] ED Fall Risk Assessment (Adult) Score/Fall Risk Level 0 - 2 = Low Risk. Abuse as6 screen: Denies threats or abuse. Denies injuries from another. Nutritional screening: No deficits noted. Tuberculosis screening: No symptoms or risk factors identified. Vital Signs: 18:50 BP 137 / 89; Pulse 92; Resp 17; Temp 98.1; Pulse Ox 100% ; Pain 10/10; jl7 ED Course: 17:40 Patient arrived in ED. rg4 17:50 Edwige Valerio FNP-C is [facility]. snw 17:50 Usman Richardson MD is Attending Physician. snw 18:51 Triage completed. jl7 18:51 Arm band placed on right wrist. jl7 21:02 Bed in low position. Call light in reach. as6 21:02 Assist provider with laceration repair on right thumbnail that was 2.5 cm. or less as6 using sutures. Set up tray. Performed by Edwige DAVIS Dressed with Kerlix, Patient tolerated well. Patient did not have IV access during this emergency room visit. Administered Medications: 20:00 Drug: Augmentin (Amoxicillin-Clavulanate) 875 mg Route: PO; as6 21:03 Follow up: Response: No adverse reaction as6 20:08 Drug: Boostrix Tdap 0.5 ml Route: IM; Site: left deltoid; ll3 21:04 Follow up: Response: (VIS) Vaccine information sheet provided today. Questions and/or as6 concerns addressed. VIS edition date: Apr 03, 2021.; No adverse reaction 20:18 Drug: Lidocaine (1 %) 1 vials {Note: administered by provider .} Volume: 5 ml; Route: as6 Infiltration; 21:04 Follow up: Response: No adverse reaction as6 20:19 Drug: Hibiclens (chlorhexidine) Liquid 4 % 1 application {Note: administered by as6 provider .} Route: Topical; Site: affected area; 21:04 Follow up: Response: No adverse reaction as6 20:19 Drug: Marcaine (bupivacaine) (0.5 %) 1 vials {Note: administered by provider .} Volume: as6 10 ml; Route: Infiltration; 21:04 Follow up: Response: No adverse reaction as6 Medication: 21:03 Vaccine Information Statement (VIS) provided today. Questions and/or concerns as6 addressed. VIS edition date: April 03, 2021. Outcome: 20:45 Discharge ordered by . snw 21:03 Discharged to home ambulatory. as6 21:03 Condition: stable 21:03 Discharge instructions given to patient, Instructed on discharge instructions, follow up and referral plans. medication usage, wound care, Demonstrated understanding of instructions, follow-up care, medications, wound care, Prescriptions given X 2. 21:04 Patient left the ED. as6 Signatures: Edwige Valerio FNP-C [employer] INSERTER-Csnw Addie Urbina rg4 Earl David RN RN jl7 Reza Al RN RN as6 Samuel Huff RN RN ll3 Corrections: (The following items were deleted from the chart) 18:52 18:51 [place] Meds: "throid medicine"; rebecca jl7
--- NOTE | 2022-10-18 20:45 | EDPHYS ---
Physician Documentation [facility] Name: Ying Terry Age: 46 yrs Sex: Female : 1975 Arrival Date: 10/18/2022 Time: 17:40 Bed DIS4 Private MD: CHAUNCEY Physician Usman Richardson HPI: 10/18 19:58 This 46 yrs old Female presents to ER via Ambulatory with complaints of Finger snw Injury. 19:58 The patient or guardian reports pain, swelling, tenderness. The complaints affect the snw right distal thumb and nail area. Context: The problem was sustained at home, resulted from catbite. Onset: The symptoms/episode began/occurred suddenly, 9 day(s) ago, and became persistent. Associated signs and symptoms: Pertinent positives: tenderness, discharge, edema. Severity of symptoms: At their worst the symptoms were moderate, severe. The patient has not experienced similar symptoms in the past. The patient has not recently seen a physician. It was pt's cat who was jealous of pt's attention to her dog, bite to thumb. 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 - Social history:: Smoking status: Patient denies any tobacco usage or history of. ROS: 19:58 Constitutional: Negative for fever, chills, and weight loss, Eyes: Negative for injury, snw pain, redness, and discharge, ENT: Negative for injury, pain, and discharge, Neck: Negative for injury, pain, and swelling, Cardiovascular: Negative for chest pain, palpitations, and edema, Respiratory: Negative for shortness of breath, cough, wheezing, and pleuritic chest pain, Abdomen/GI: Negative for abdominal pain, nausea, vomiting, diarrhea, and constipation, Back: Negative for injury and pain, : Negative for injury, bleeding, discharge, and swelling, MS/Extremity: Negative for injury and deformity, Neuro: Negative for headache, weakness, numbness, tingling, and seizure, Psych: Negative for depression, anxiety, suicide ideation, homicidal ideation, and hallucinations. 19:58 Skin: Positive for cellulitis, pain to right thumb. Exam: 19:57 Constitutional: This is a well developed, well nourished patient who is awake, alert, snw and in no acute distress. Head/Face: Normocephalic, atraumatic. Eyes: Pupils equal round and reactive to light, extra-ocular motions intact. Lids and lashes normal. Conjunctiva and sclera are non-icteric and not injected. Cornea within normal limits. Periorbital areas with no swelling, redness, or edema. ENT: Nares patent. No nasal discharge, no septal abnormalities noted. Tympanic membranes are normal and external auditory canals are clear. Oropharynx with no redness, swelling, or masses, exudates, or evidence of obstruction, uvula midline. Mucous membranes moist. Neck: Trachea midline, no thyromegaly or masses palpated, and no cervical lymphadenopathy. Supple, full range of motion without nuchal rigidity, or vertebral point tenderness. No Meningismus. Chest/axilla: Normal chest wall appearance and motion. Nontender with no deformity. No lesions are appreciated. Cardiovascular: Regular rate and rhythm with a normal S1 and S2. No gallops, murmurs, or rubs. Normal PMI, no JVD. No pulse deficits. Respiratory: Lungs have equal breath sounds bilaterally, clear to auscultation and percussion. No rales, rhonchi or wheezes noted. No increased work of breathing, no retractions or nasal flaring. Abdomen/GI: Soft, non-tender, with normal bowel sounds. No distension or tympany. No guarding or rebound. No evidence of tenderness throughout. Back: No spinal tenderness. No costovertebral tenderness. Full range of motion. MS/ Extremity: Pulses equal, no cyanosis. Neurovascular intact. Full, normal range of motion. Neuro: Awake and alert, GCS 15, oriented to person, place, time, and situation. Cranial nerves II-XII grossly intact. Motor strength 5/5 in all extremities. Sensory grossly intact. Cerebellar exam normal. Normal gait. Psych: Awake, alert, with orientation to person, place and time. Behavior, mood, and affect are within normal limits. 19:57 Skin: Appearance: normal except for affected area, paronychia to right thumb, no problem with extension or flexion. No streaking or increased erythema or warmth. Vital Signs: 18:50 BP 137 / 89; Pulse 92; Resp 17; Temp 98.1; Pulse Ox 100% ; Pain 10/10; jl7 Procedures: 20:19 Nerve block: (digital) of right thumb. Medication: Lidocaine 1% without epinephrine snw Marcaine 0.5%, Amount: 4 mls were injected, Effect: the patient's symptoms are improved, moderately, markedly, Performed by Edwige NEVES-C Patient tolerated well. MDM: 19:02 Patient medically screened. snw 20:47 Data reviewed: vital signs, nurses notes. Counseling: I had a detailed discussion with snw the patient and/or guardian regarding: the historical points, exam findings, and any diagnostic results supporting the discharge/admit diagnosis, the presence of at least one elevated blood pressure reading (>120/80) during this emergency department visit, the need for outpatient follow up, to return to the emergency department if symptoms worsen or persist or if there are any questions or concerns that arise at home. Response to treatment: the patient's symptoms have markedly improved after treatment. Special discussion: I discussed in detail with the patient the higher chance of wound infection based on his presenting history. Based on the history and exam findings, there is no indication for further emergent testing or inpatient evaluation. I discussed with the patient/guardian the need to see the primary care provider for further evaluation of the symptoms. 10/18 19:08 Order name: Suture Tray at Bedside; Complete Time: 20:07 snw 10/18 20:21 Order name: consult Order-Animal control snw Administered Medications: 20:00 Drug: Augmentin (Amoxicillin-Clavulanate) 875 mg Route: PO; as6 21:03 Follow up: Response: No adverse reaction as6 20:08 Drug: Boostrix Tdap 0.5 ml Route: IM; Site: left deltoid; ll3 21:04 Follow up: Response: (VIS) Vaccine information sheet provided today. Questions and/or as6 concerns addressed. VIS edition date: Apr 03, 2021.; No adverse reaction 20:18 Drug: Lidocaine (1 %) 1 vials {Note: administered by provider .} Volume: 5 ml; Route: as6 Infiltration; 21:04 Follow up: Response: No adverse reaction as6 20:19 Drug: Hibiclens (chlorhexidine) Liquid 4 % 1 application {Note: administered by as6 provider .} Route: Topical; Site: affected area; 21:04 Follow up: Response: No adverse reaction as6 20:19 Drug: Marcaine (bupivacaine) (0.5 %) 1 vials {Note: administered by provider .} Volume: as6 10 ml; Route: Infiltration; 21:04 Follow up: Response: No adverse reaction as6 Disposition Summary: 10/18/22 20:45 Discharge Ordered Location: Home snw Condition: Stable snw Diagnosis - Bitten by cat snw Followup: snw - With: Emergency Department - When: As needed - Reason: Worsening of condition Followup: snw - With: Private Physician - When: 2 - 3 days - Reason: Recheck today's complaints, Continuance of care, Re-evaluation by your physician Discharge Instructions: - Discharge Summary Sheet snw - Animal Bite, Adult snw Forms: - Medication Reconciliation Form snw - Thank You Letter snw - Antibiotic Education snw - Prescription Opioid Use snw Prescriptions: - Augmentin 875-125 mg Oral Tablet - take 1 tablet by ORAL route every 12 hours for 10 days; 20 tablet; Refills: 0, snw Product Selection Permitted - Mobic 7.5 mg Oral Tablet - take 1 tablet by ORAL route once daily take with food; 20 tablet; Refills: 0, snw Product Selection Permitted Signatures: Edwige Valerio, ISSUING OPERATOR-C ISSUING OPERATOR-Csnw Earl David RN RN jl7 Reza Al RN RN as6 Samuel Huff RN RN ll3 Corrections: (The following items were deleted from the chart) 18:52 18:51 Home Meds: "throid medicine"; rebecca jlAbelardo
[2022-10-18 21:11] VITALS: TEMP 98.1
[2022-10-18 22:24] VITALS: BP 164/102
[2022-10-18 22:25] VITALS: O2SAT 99
== END 2022-10-18 21:04 | disposition home or self-care (01) ==
LOC: ER 17:39
PROC: 0HQFXZZ Repair Right Hand Skin, External Approach (ICD-10-PCS; principal; 2022-10-18)
DX: S61.111A Laceration without foreign body of right thumb with damage to nail, initial encounter (principal); W55.01XA Bitten by cat, initial encounter; E03.9 Hypothyroidism, unspecified
CPT/HCPCS: 64450; 96372; 99283; 12001; J2001

== ENCOUNTER 2024-05-02 13:17 | Emergency (ER) | payer BC ==
--- OUTSIDE RECORDS SUMMARY | 2024-05-02 13:20 | XMS REPORT | Clinical Summary ---
Author Name Unknown Organization [facility] Address [address] [place] [address] Care Team Providers Care Patient Account Liaison Name Role Phone Unavailable Primary Care Provider Unavailabl e Social History Tobacco Use Types Packs/Day Years Used Date Smoking Tobacco: Never Assessed Sex and Gender Information Value Date Recorded Sex Assigned at Female 01/10/2023 5:17 PM CDT Gender Identity Female 01/10/2023 5:17 PM CDT Sexual Orientation Straight 01/10/2023 5: 17 PM CDT Job Start Date Occupation Industry Not on file Not on file Not on file Plan of Treatment Not on file
--- NOTE | 2024-05-02 13:26 | EDPHYS ---
Physician Documentation [facility] Name: Ying Terry Age: 48 yrs Sex: Female : 1975 Arrival Date: 05/02/2024 Time: 13:17 Bed 10 Private MD: ED Physician Dennis Barbosa HPI: 05/02 13:27 This 48 yrs old Female presents to ER via Unassigned with complaints of Dog kb Bite. 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 States the dog had been hit by a car and she was trying to lift it to move it when it bit her. . 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 - Infectious Disease History:: Denies. - Social history:: Smoking status: Patient denies any tobacco usage or history of. ROS: 13:27 Constitutional: As per HPI kb Exam: 13:27 Constitutional: This is a well developed, well nourished patient who is awake, alert, kb and in no acute distress. Head/Face: Normocephalic, atraumatic. ENT: Moist Mucous membranes Cardiovascular: Regular rate Respiratory: Respirations even and unlabored. No increased work of breathing. Talking in full sentences MS/ Extremity: Pulses equal, no cyanosis. Neurovascular intact. Full, normal range of motion. Neuro: Awake and alert, GCS 15, oriented to person, place, time, and situation. Moves all extremities. Normal gait. 13:27 Skin: injury, bite(s), superficial, of the dorsum of right hand and right steward, bruising to hand, bruising and very superficial abrasions to steward, Vital Signs: 13:25 BP 155 / 95; Pulse 110; Resp 18 S; Temp 98.2(TE); Pulse Ox 100% on R/A; Weight 63.5 kg kc6 (R); Height 5 ft. 1 in. (R); Pain 0/10; 13:57 Pulse 95; Resp 17; Pulse Ox 100% ; Pain 0/10; ll1 13:25 Body Mass Index 26.45 (63.50 kg, 154.94 cm) kc6 13:25 Pain Scale: Adult kc6 13:57 Pain Scale: Adult ll1 MDM: 13:22 Patient medically screened. kb 13:30 Differential diagnosis: superficial laceration, contusion, hematoma. Data reviewed: kb vital signs, nurses notes. I considered the following discharge prescriptions or medication management in the emergency department I discussed and recommended Over The Counter medications, Antibiotics: At this time antibiotics are not recommended. Counseling: I had a detailed discussion with the patient and/or guardian regarding the historical points, exam findings, and any diagnostic results supporting the discharge/admit diagnosis, the need for outpatient follow up, a family practitioner, to return to the emergency department if symptoms worsen or persist or if there are any questions or concerns that arise at home. 05/02 13:27 Order name: Wound Care; Complete Time: 13:40 kb Administered Medications: 13:39 Drug: Boostrix Tdap IM 0.5 ml IM once; as a single dose {Note: lot # [id number] expiration ll1 06/17/2026.} Route: IM; Site: left deltoid; 13:59 Follow up: Response: No adverse reaction; RASS: Alert and Calm (0) ll1 Disposition: 13:27 I was immediately available on-site in the Emergency Department for consultation in the ms3 care of the patient. Disposition Summary: 05/02/24 13:26 Discharge Ordered Notes: Location: Home kb Condition: Stable kb Diagnosis - Bitten by dog kb Followup: kb - With: Emergency Department - When: As needed - Reason: Worsening of condition Followup: kb - With: Private Physician - When: 2 - 3 days - Reason: Recheck today's complaints, Continuance of care, Re-evaluation by your physician Discharge Instructions: - Discharge Summary Sheet kb - Animal Bite, Adult, [id number] kb Forms: - Medication Reconciliation Form kb - Antibiotic Education kb - Prescription Opioid Use kb - Patient Portal Instructions kb - Leadership Thank You Letter kb - Work release form ll1 Signatures: Migdalia Liang FNP-C FNP-Sonia Sandoval RN RN ll1 Dennis Barbosa DO DO ms3 Lisa Jarrett, RN RN kc6
[2024-05-02] MEDS ORDERED: TDAP (DIPHTH,PERTUSS(ACELL),TET VAC) 0.5 ML VIAL IMVAC ONE (13:36)
--- NOTE | 2024-05-02 13:55 | ER ---
Nurse's Notes [facility] Name: Ying Terry Age: 48 yrs Sex: Female : 1975 Arrival Date: 05/02/2024 Time: 13:17 Bed 10 Private MD: Diagnosis: Bitten by dog Presentation: 05/02 13:25 Chief complaint: Patient states: her dog got hit by a car and when she went to pick it kc6 up and came and bit her right ankle. Coronavirus screen: At this time, the client does not indicate any symptoms associated with coronavirus-19. Ebola Screen: No symptoms or risks identified at this time. Initial Sepsis Screen: Does the patient meet any 2 criteria? HR > 90 bpm. Does the patient have a suspected source of infection? No. Patient's initial sepsis screen is negative. Risk Assessment: Do you want to hurt yourself or someone else? Patient reports no desire to harm self or others. Onset of symptoms was May 02, 2024. 13:25 Method Of Arrival: Ambulatory [facility] 13:25 Acuity: WAQAR 4 kc6 Triage Assessment: 13:27 Bite description: bite sustained to right foot is superficial, from animal, by a dog, kc6 animal information: vaccination(s) is current. 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 - Infectious Disease History:: Denies. - Social history:: Smoking status: Patient denies any tobacco usage or history of. Screenin:50 [facility] ED Fall Risk Assessment (Adult) History of falling in the last 3 months, ll1 including since admission No falls in past 3 months (0 pts) Confusion or Disorientation No (0 pts) Intoxicated or Sedated No (0 pts) Impaired Gait No (0 pts) Mobility Assist Device Used No (0 pt) Altered Elimination No (0 pt) Score/Fall Risk Level 0 - 2 = Low Risk Maintained a safe environment, Hourly rounding (assess needs \T\ fall precautionary measures) done. Abuse screen: Denies threats or abuse. Nutritional screening: No deficits noted. Tuberculosis screening: No symptoms or risk factors identified. Assessment: 13:47 General: Appears in no apparent distress. Behavior is calm, cooperative, appropriate ll1 for age. Pain: Complains of pain in right steward Quality of pain is described as aching. Derm: Skin is intact, Skin is pink, warm \T\ dry. Reports small abrasions from dog bite to R steward area. No active bleeding. Vital Signs: 13:25 BP 155 / 95; Pulse 110; Resp 18 S; Temp 98.2(TE); Pulse Ox 100% on R/A; Weight 63.5 kg kc6 (R); Height 5 ft. 1 in. (R); Pain 0/10; 13:57 Pulse 95; Resp 17; Pulse Ox 100% ; Pain 0/10; ll1 13:25 Body Mass Index 26.45 (63.50 kg, 154.94 cm) kc6 13:25 Pain Scale: Adult kc6 13:57 Pain Scale: Adult ll1 ED Course: 13:21 Patient arrived in ED. mg5 13:21 Migdalia Liang FNP-C is PHCP. kb 13:21 Dennis Barbosa DO is Attending Physician. kb 13:27 Triage completed. kc6 13:27 Arm band placed on. kc6 13:35 Sonia Nazario, ADEN is Primary Nurse. 1 13:48 Patient did not have IV access during this emergency room visit. Wound care: to cleaned ll1 with NS and Hibiclens. Triple antibiotic applied. Large band aid used to cover site. Tolerated well. 13:57 Patient has correct armband on for positive identification. Bed in low position. 1 Provided Education on: keep site clean and dry. Wash with antibacterial soap and water. Return for s/s of infection. Verbalized understanding, . 13:57 No provider procedures requiring assistance completed. [facility] Administered Medications: 13:39 Drug: Boostrix Tdap IM 0.5 ml IM once; as a single dose {Note: lot # [id number] expiration ll1 06/17/2026.} Route: IM; Site: left deltoid; 13:59 Follow up: Response: No adverse reaction; RASS: Alert and Calm (0) [facility] Medication: 13:50 Vaccine Information Statement (VIS) provided today. Questions and/or concerns ll1 addressed. VIS edition date: April 03, 2021. Outcome: 13:26 Discharge ordered by MD. escobar 13:55 Patient left the ED. ll1 13:57 Discharged to home ambulatory, ll1 13:57 Condition: stable 13:57 Discharge instructions given to patient, Instructed on discharge instructions, follow up and referral plans. wound care, Demonstrated understanding of instructions, follow-up care, wound care, Signatures: Migdalia Liang, PUR[employer] MILL CONTROLLER-Sonia Sandoval RN RN ll1 Lisa Jarrett RN RN kc6 Candy Hope mg5 Corrections: (The following items were deleted from the chart) 13:47 13:39 Boostrix Tdap IM 0.5 ml IM in left deltoid ll1 ll1
[2024-05-02 13:59] VITALS: BP 155/95; TEMP 98.2; O2SAT 100
== END 2024-05-02 13:55 | disposition home or self-care (01) ==
LOC: ER 13:17
DX: S60.571A Other superficial bite of hand of right hand, initial encounter (principal); S80.871A Other superficial bite, right lower leg, initial encounter; W54.0XXA Bitten by dog, initial encounter
CPT/HCPCS: 96372; 99284

== ENCOUNTER 2024-07-08 16:43 | Emergency (ER) | payer BC ==
--- OUTSIDE RECORDS SUMMARY | 2024-07-08 16:48 | XMS REPORT | Clinical Summary ---
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
[2024-07-08 17:49] LABS: SARS-CoV-2 Antigen CONTROL BLUE LINE VIS/BG OK; SARS-CoV-2 Antigen Rapid Res Negative (Negative)
--- NOTE | 2024-07-08 18:53 | ER ---
Nurse's Notes [facility] Name: Ynig Terry Age: 48 yrs Sex: Female : 1975 Arrival Date: 07/08/2024 Time: 16:43 Bed DX4 Private MD: Diagnosis: Influenza due to other identified influenza virus with other respiratory manifestations Presentation: 07/08 17:04 Chief complaint: Patient states: Cough, congestion, headache, sore throat onset cm10 . Pt states that her pain is worse with cough. Coronavirus screen: Client denies travel out of the [place] in the last 14 days. Ebola Screen: Patient denies travel to an Ebola-affected area in the 21 days before illness onset. No symptoms or risks identified at this time. Initial Sepsis Screen: Does the patient meet any 2 criteria? HR > 90 bpm. Does the patient have a suspected source of infection? No. Patient's initial sepsis screen is negative. Risk Assessment: Do you want to hurt yourself or someone else? Patient reports no desire to harm self or others. Onset of symptoms was July 05, 2024. 17:04 Method Of Arrival: Ambulatory cm10 17:04 Acuity: WAQAR 4 cm10 Triage Assessment: 17:05 General: Appears in no apparent distress. uncomfortable, Behavior is calm, cooperative. cm10 Pain: Complains of pain in head Pain does not radiate. Pain currently is 8 out of 10 on a pain scale. Quality of pain is described as pressure. Neuro: No deficits noted. Level of Consciousness is awake, alert, obeys commands, Oriented to person, place, time, situation, Appropriate for age Reports headache. Respiratory: Reports cough that is non-productive, dry, Airway is patent Respiratory effort is even, unlabored, Respiratory pattern is regular, symmetrical. Historical: - Allergies: 17:05 No Known Allergies; cm10 - PMHx: 17:05 Diverticulitis; Herniated disc; Hypothyroidism; cm10 - PSHx: 17:05 Appendectomy; section; cm10 - Immunization history:: Adult Immunizations up to date. - Infectious Disease History:: Denies. - Social history:: Smoking status: Patient denies any tobacco usage or history of. Assessment: 19:27 Reassessment: pt called from lobby. no response. provider notified. lg3 20:00 Reassessment: Pt called in lobby, no answer. tl4 20:31 Reassessment: pt called from lobby. no response. provider notified. lg3 21:03 Reassessment: Pt called in lobby, no answer. tl4 21:44 Reassessment: called in lobby, no answer. tl4 Vital Signs: 17:04 BP 126 / 91; Pulse 100; Resp 19; Temp 99.2(O); Pulse Ox 97% on R/A; Weight 71.21 kg; cm10 Height 5 ft. 1 in. ; Pain 8/10; 17:04 Body Mass Index 29.66 (71.21 kg, 154.94 cm) cm10 17:04 Pain Scale: Adult cm10 ED Course: 16:48 Patient arrived in ED. mg5 17:03 Usman Spears PA is PHCP. cp 17:03 Usman Richardson MD is Attending Physician. cp 17:05 Triage completed. cm10 17:06 Arm band placed on right wrist. Patient placed in waiting room. cm10 17:11 Strep Sent. cm10 17:11 SARS RAPID Sent. cm10 17:11 Flu Sent. cm10 17:11 COVID swab sent to lab. Flu and/or RSV swab sent to lab. Strep swab sent to lab. cm10 18:06 XRAY Chest Pa And Lat (2 Views) In Process Unspecified. EDMS Administered Medications: No medications were administered Outcome: 18:52 Discharge ordered by . cp 23:05 Patient left the ED. tl4 Signatures: Dispatcher [employer] EDMS Usman Spears PA PA cp Able, Lacie RN ADEN lg3 Ya Alvarado, RN RN 10 Candy Hope mg5 Jenaro Santos, RN RN tl4
--- NOTE | 2024-07-08 18:53 | EDPHYS ---
Physician Documentation [facility] Name: Ying Terry Age: 48 yrs Sex: Female : 1975 Arrival Date: 07/08/2024 Time: 16:43 Bed DX4 Private MD: ED Physician Usman Richardson HPI: 07/08 17:10 This 48 yrs old Female presents to ER via Ambulatory with complaints of Flu cp Symptoms. 17:10 The patient or guardian reports cough, that is constant. cp 17:10 Onset: The symptoms/episode began/occurred 3 day(s) ago. Associated signs and symptoms: cp Pertinent positives: chest pain, with cough, sore throat, headache, Pertinent negatives: diarrhea, fever, vomiting. Severity of symptoms: in the emergency department the symptoms are unchanged despite home interventions. Historical: - Allergies: 17:05 No Known Allergies; cm10 - PMHx: 17:05 Diverticulitis; Herniated disc; Hypothyroidism; cm10 - PSHx: 17:05 Appendectomy; section; cm10 - Immunization history:: Adult Immunizations up to date. - Infectious Disease History:: Denies. - Social history:: Smoking status: Patient denies any tobacco usage or history of. ROS: 17:15 Constitutional: Negative for chills, fever, cp 17:15 Eyes: Negative for injury, pain, redness, and discharge, cp 17:15 ENT: Positive for sore throat, Negative for drainage from ear(s), ear pain, difficulty swallowing, difficulty handling secretions, 17:15 Cardiovascular: Positive for chest pain, with cough, Negative for edema, palpitations, 17:15 Respiratory: Positive for cough, "sounds productive", 17:15 Abdomen/GI: Negative for abdominal pain, vomiting, diarrhea, constipation, 17:15 : Negative for urinary symptoms, 17:15 Neuro: Positive for headache, Negative for altered mental status, weakness, 17:15 All other systems are negative, Exam: 17:20 Constitutional: The patient appears in no acute distress, alert, awake, cp non-diaphoretic, non-toxic, well developed, well nourished, 17:20 Head/Face: Normocephalic, atraumatic. cp 17:20 Eyes: Periorbital structures: appear normal, Conjunctiva: normal, no exudate, no injection, Sclera: no appreciated abnormality, Lids and lashes: appear normal, bilaterally, 17:20 ENT: External ear(s): are unremarkable, Ear canal(s): are normal, clear, TM's: dullness, bilaterally, Nose: is normal, Mouth: Lips: moist, Oral mucosa: moist, Posterior pharynx: Airway: no evidence of obstruction, patent, erythema, that is mild, exudate, is not appreciated, 17:20 Neck: ROM/movement: is normal, is supple, without pain, no range of motions limitations, no meningismus, 17:20 Chest/axilla: Inspection: normal, 17:20 Cardiovascular: Rate: tachycardic, Rhythm: regular, 17:20 Respiratory: the patient does not display signs of respiratory distress, Respirations: labored breathing, is not present, intercostal retractions, are absent, Breath sounds: bronchial sounds, that are mild, are heard diffusely, decreased breath sounds, are not appreciated, stridor, is not appreciated, + upper airway congestion. 17:20 Abdomen/GI: Inspection: abdomen appears normal, Palpation: abdomen is soft and non-tender, in all quadrants, 17:20 Back: pain, is absent, ROM is normal, 17:20 Skin: no rash present. 17:20 Neuro: Orientation: to person, place \\T\\ time. Mentation: is normal, Motor: moves all fours, strength is normal, Vital Signs: 17:04 BP 126 / 91; Pulse 100; Resp 19; Temp 99.2(O); Pulse Ox 97% on R/A; Weight 71.21 kg; cm10 Height 5 ft. 1 in. ; Pain 8/10; 17:04 Body Mass Index 29.66 (71.21 kg, 154.94 cm) cm10 17:04 Pain Scale: Adult cm10 MDM: 17:09 Medical Screening Exam initiated cp 17:45 Differential diagnosis: bronchitis, flu, URI, pneumonia. cp 18:51 Independent interpretation of the following test(s) in the Emergency Department X-Ray: cp My interpretation is images of chest negative for focal pneumonia. Counseling: I had a detailed discussion with the patient and/or guardian regarding the historical points, exam findings, and any diagnostic results supporting the discharge/admit diagnosis, lab results, radiology results, to return to the emergency department if symptoms worsen or persist or if there are any questions or concerns that arise at home. 18:51 Data reviewed: vital signs, nurses notes, lab test result(s), radiologic studies, plain cp films, and as a result, I will discharge patient. 07/08 17:04 Order name: Flu; Complete Time: 18:08 cm10 07/08 18:08 Interpretation: Reviewed. cp 07/08 17:04 Order name: SARS RAPID; Complete Time: 18:08 cm10 07/08 17:04 Order name: Strep; Complete Time: 18:08 cm10 07/08 17:38 Order name: Throat Culture EDMS 07/08 17:14 Order name: XRAY Chest Pa And Lat (2 Views); Complete Time: 19:12 cp 07/08 19:12 Interpretation: Report reviewed. cp Administered Medications: No medications were administered Disposition Summary: 07/08/24 18:52 Discharge Ordered Notes: Location: Home cp Problem: new cp Symptoms: are unchanged cp Condition: Stable cp Diagnosis - Influenza due to other identified influenza virus with other respiratory cp manifestations Followup: cp - With: Private Physician - When: 2 - 3 days - Reason: Worsening of condition Discharge Instructions: - Discharge Summary Sheet cp - Influenza, Adult cp Forms: - Medication Reconciliation Form cp - Antibiotic Education cp - Prescription Opioid Use cp - Patient Portal Instructions cp - Leadership Thank You Letter cp Prescriptions: - Bromfed DM 2-30-10 mg/5 mL Oral syrup - administer 10 milliliter ORAL route every 6-8 hours as needed for cold cp symptoms; 240 milliliter; Refills: 0, Product Selection Permitted - Ibuprofen 800 mg Oral Tablet - take 1 tablet ORAL route every 8 hours As needed take with food; 30 tablet; cp Refills: 0, Product Selection Permitted - Tamiflu 75 mg Oral capsule - take 1 tablet ORAL route every 12 hours for 5 days; 10 tablet; Refills: 0, cp Product Selection Permitted Signatures: Dispatcher [employer] [facility] Usman Spears PA PA cp Martinez, Clarissa, RN RN cm10
--- NOTE | 2024-07-08 19:02 | RAD REPORT ---
EXAMINATION: TWO VIEW CHEST XR CLINICAL INDICATION: Female, 48 years old. [facility] MA[facility] COUGH Bed Name: [facility] TECHNIQUE: 2 view radiographs of the chest were performed. COMPARISON: 09/22/2020 FINDINGS: The lungs are well inflated and clear. No pneumothorax or sizable effusion. The heart is normal in si ze. Mediastinal contours are unremarkable. IMPRESSION: No acute or significant abnormalities.
[2024-07-08 23:26] VITALS: BP 126/91; TEMP 99.2; O2SAT 97
== END 2024-07-08 23:05 | disposition home or self-care (01) ==
LOC: ER 16:43
DX: J10.1 Influenza due to other identified influenza virus with other respiratory manifestations (principal); Z11.52 Encounter for screening for COVID-19
CPT/HCPCS: 36415; 71046; 87070; 87081; 87804; 87811; 99282